=== PATIENT | female | born 1990 | race African-American/Black ===

== ENCOUNTER 2017-03-07 13:03 | Emergency (ER) | payer SELFPAY ==
[~2017-03-07] VITALS: Ht 160 cm; Wt 70.0 kg
[2017-03-07 13:04] VITALS: BP 130/87; PULSE 86; RESP 20; TEMP 98.4; O2SAT 100
[2017-03-07 13:49] VITALS: BP 128/77; PULSE 70; RESP 16; O2SAT 100
--- NOTE | 2017-03-07 13:59 | PD ---
HPI Chief Complaint: Medical Clearance Time Seen by Provider: 13:59 Travel History International Travel<30 days: No Contact w/Intl Traveler<30days: No Traveled to known affect area: No History of Present Illness HPI 26 YO F presents to the ED for evaluation of decreased appetite, nausea x 7 weeks. Per the patient she is 8 weeks with her first . She has no difficulty swallowing fluids or solids. She denies headaches, fever, chills, vomiting, abdominal pain, changes in bowel habits, dysuria, back pain, vaginal discharge or vaginal bleeding. She does not take any daily medications. She has not yet established care with an broaching machine repairer. [facility] Past Medical History Medical History: Denies Significant Hx Influenza Vaccination: No ?: LMP: 01/16/2017 : 1 Past Surgical History Surgical History: No Previous Surgery Social History Alcohol Use: Yes (OCCASIONALLY) Tobacco Use: No Substance Use: No Allergies-Medications (Allergen,Severity, Reaction): Uncoded Allergies: TIN (Allergy, Intermediate, SWELLING, 03/07/17) Reported Meds & Prescriptions Reported Meds & Active Scripts Active Se-Chioma 19 29-1 mg Chew ( Vit W/ Ferrous Fumara Chew) 1 Chew 1 Tab CHEW DAILY Review of Systems Except as stated in HPI: all other systems reviewed are Neg Physical Exam Narrative GENERAL: Well-nourished, well-developed well-appearing black female in no acute distress. SKIN: Focused skin assessment warm/dry. HEAD: Normocephalic. EYES: No scleral icterus. No injection or drainage. NECK: Supple, trachea midline. No JVD or lymphadenopathy. CARDIOVASCULAR: Regular rate and rhythm without murmurs, gallops, or rubs. RESPIRATORY: Breath sounds clear and equal bilaterally. No accessory muscle use. GASTROINTESTINAL: Abdomen soft, non-tender, nondistended. Active bowel sounds. MUSCULOSKELETAL: No cyanosis, or edema. BACK: Nontender without obvious deformity. No CVA tenderness. Data Data Last Documented VS Vital Signs Date Time Temp Pulse Resp B/P Pulse Ox O2 Delivery O2 Flow Rate FiO2 03/07/17 13:49 70 16 128/77 100 Room Air 03/07/17 13:04 98.4 MDM Medical Decision Making Medical Screen Exam Complete: Yes Emergency Medical Condition: Yes Differential Diagnosis versus hyperemesis versus inappropriate use of the emergency room versus other Narrative Course 26-year-old 8 week gravid female presents to the ED for evaluation of 7 week history of decreased appetite and nausea. She has not had any problems keeping food down, just states that she has a low appetite and feels tired. She is not yet established obstetric care. Vitals reviewed. On physical exam the patient is very well-appearing and the abdominal exam is completely benign. This is her first so I counseled her that she should begin taking vitamins, eat small meals throughout the day, establish obstetrical care. I prescribed 30 days' vitamins plus iron. I advised her not to take any medications without confirming that they were safe in . The patient was reassured by this discussion and is stable and discharged to outpatient obstetric care. Diagnosis Primary Impression: First trimester Referrals: Behavioral Health Care Manager Patient Instructions: First Trimester (ED), General Instructions Additional Instructions: Rest, hydrate. Eat small meals throughout the course of the day. Begin vitamins daily. Follow-up with the broaching machine repairer. Return to the ED for any urgent or emergent medical condition. Med/Other Pt SpecificInfo: Prescription(s) given Scripts Vit W/ Ferrous Fumara Chew (Se-Chioma 19 29-1 mg Chew)1 Chew1 Tab CHEW DAILY #30 EA Ref 0 Prov:Breanna Brown MD 03/07/17 Disposition: 01 DISCHARGE HOME Condition: Stable [place] Keith Mar 07, 2017 13:59
[2017-03-07] MEDS ORDERED: SE-NCHW CHEW (14:22)
== END 2017-03-07 15:25 | disposition home or self-care (01) ==
LOC: NEPD 13:03
DX: O26.891 Other specified pregnancy related conditions, first trimester (principal); R11.0 Nausea; Z3A.08 8 weeks gestation of pregnancy
CPT/HCPCS: 99281

== ENCOUNTER 2017-10-12 19:51 | Inpatient (IN) | payer MEDICAID ==
[~2017-10-12] VITALS: Ht 167.6 cm; Wt 77.0 kg
[~2017-10-12 19:51] MED LIST: SE-NCHW CHEW
[2017-10-12 21:21] LABS: BILIRUBIN, URINE NEG (NEG); BLOOD, URINE NEG (NEG); GLUCOSE,URINE NEG (NEG); KETONE, URINE NEG (NEG); NITRITE,URINE NEG (NEG); PH, URINE 6.5 (5.0-8.5); SQUAMOUS EPITHELIAL CELL URINE 1 /hpf (0-5); URINE COLOR LIGHT-YELLOW (YELLW/STRAW); URINE LEUKOCYTE ESTERASE NEG (NEG)
[2017-10-12 22:21] LABS: ALBUMIN 2.8 GM/DL (3.4-5.0); ALT (GPT) 15 U/L (10-53); AST (GOT) 19 U/L (15-37); BICARBONATE 28.4 MEQ/L (21.0-32.0); BLOOD UREA NITROGEN 3 MG/DL (7-18); CALCIUM 8.4 MG/DL (8.5-10.1); CHLORIDE 106 MEQ/L (98-107); CREATININE 0.83 MG/DL (0.50-1.00); GLOMERULAR FILTRATION RATE 98 ML/MIN (>89); GLUCOSE,RANDOM 85 MG/DL (74-106); SODIUM (NA) 144 MEQ/L (136-145)
[2017-10-12 22:24] LABS: ALKALINE PHOSPHATASE 128 U/L (45-117); TOTAL BILIRUBIN ADULT 0.2 MG/DL (0.2-1.0)
[2017-10-12] MEDS ORDERED: NIFEdipine 10 MG CAP ONE (22:31)
[2017-10-12] MEDS ORDERED: LACTATED RINGER'S 1000 ML INJ 1,000 ML IV PRN (22:33)
[2017-10-12 22:38] LABS: HEMATOCRIT 32.9 % (35.0-46.0); HEMOGLOBIN 11.2 GM/DL (11.6-15.3); MEAN CELL VOLUME 87.4 FL (80.0-100.0); MEAN CORPUSCULAR HEMOGLOBIN 29.9 PG (27.0-34.0); MEAN CORPUSCULAR HGB CONC 34.2 % (32.0-36.0); MEAN PLATELET VOLUME 9.6 FL (7.0-11.0); PLATELET COUNT 202 TH/MM3 (150-450); RED BLOOD COUNT 3.76 MIL/MM3 (4.00-5.30); RED CELL DISTRIBUTION WIDTH 13.9 % (11.6-17.2)
[2017-10-12 22:45] VITALS: BP 158/96; PULSE 81
[2017-10-12] MEDS ORDERED: CITRIC ACID-SODIUM CITRATE LIQ 30 ML UDC PO SCH (22:45)
[2017-10-12] MEDS ORDERED: LIDOCAINE HCL 1% 50 ML VIAL INFIL PRN (22:45)
[2017-10-12] MEDS ORDERED: MINERAL OIL 10 ML VIAL TOPICAL PRN (22:45)
[2017-10-12] MEDS ORDERED: LIDOCAINE HCL 1% 50 ML VIAL I-DERMAL PRN (22:45)
[2017-10-12] MEDS ORDERED: SODIUM CHLORID 0.9% 500 ML INJ 500 ML IV PRN (22:45)
[2017-10-12] MEDS ORDERED: OXYTOCIN 30 UNITS-500ML PREMIX 500 ML IV ONE (22:45)
--- NOTE | 2017-10-12 22:45 | HHI.HP ---
History & Physical H&P HPI Chief Complaint menjivar, increased bp Date Seen: Oct 12, 2017 Time Seen: 22:37 Travel History International Travel<30 Days: No Contact w/Intl Traveler<30Days: No Known Affected Area: No History of Present Illness HPI pt. is a 27 y/o @ 39 weeks present w/ c/o menjivar. pt. seen today by naval engineer for pnv and noted to have swelling and menjivar. on present pt. w/ noted htn. urine dip show no protein. pt. w/ bp 160-170/90's. pt. for iol. Weeks Gestation: 39 Para: 0 : 1 History Past Medical History Medical History: Denies Significant Hx Obstetric History Obstetric History Past Surgical History Surgical History: No Previous Surgery Family History Family History: Negative Social History Alcohol Use: No Tobacco Use: No Substance Abuse: No Allergies-Medications (Allergen,Severity, Reaction): Uncoded Allergies: TIN (Allergy, Intermediate, SWELLING, 03/07/17) Home Meds Active Scripts Vit W/ Ferrous Fumara Chew (Se- 19 29-1 mg Chew) 1 Chew, 1 TAB CHEW DAILY for Nutritional Supplement, #30 EA 0 Refills Prov:Breanna Brown MD 03/07/17 Review of Systems Except as stated in HPI: all other systems reviewed are Neg Physical Exam Narrative GENERAL: Well-nourished, well-developed patient. SKIN: Warm and dry. HEAD: menjivar EYES: No scleral icterus. No injection or drainage. ENT: No nasal drainage noted. Mucous membranes pink. Airway patent. NECK: Supple, trachea midline. No JVD. CARDIOVASCULAR: Regular rate and rhythm without murmurs, gallops, or rubs. RESPIRATORY: Breath sounds equal bilaterally. No accessory muscle use. ABDOMEN/GI: Abdomen soft, non-tender, bowel sounds present, no rebound, no guarding Gravid GENITOURINARY: External Genitalia: intact and normal in appearance Dilatation: 2 Effacement: 80 Station: high Presentation: cephalic Membranes: intact Uterine Contractions: irreg FHT's: Category: 1 Reactive: 2 Variability: mod Decels: none EXTREMITIES: No cyanosis or edema. BACK: Nontender without obvious deformity. No CVA tenderness. NEUROLOGICAL: Awake and alert. Motor and sensory grossly within normal limits. Five out of 5 muscle strength in all muscle groups. Normal speech. Data Data Vital Signs Reviewed: Yes Orders Orders Urinalysis - C+S If Indicated (10/12/17 20:49) Cbc No Diff, Includes Plts (10/12/17 ) Comprehensive Metabolic Panel (10/12/17 ) Uric Acid (10/12/17 ) Nifedipine (Procardia) (10/12/17 22:31) Admit To Inpatient (10/12/17 ) Vital Signs (Adult) .Per protocol (10/12/17 22:33) Heart (10/12/17 22:33) Amnioinfusion (10/12/17 22:33) Urinary Catheter Management .ONCE (10/12/17 22:33) Diet Liquid (10/13/17 Breakfast) Lactated Ringer's 1000 Ml Inj (Lr 1000 M (10/12/17 22:33) Lactated Ringer's 1000 Ml Inj (Lr 1000 M (10/12/17 22:33) Sodium Chlorid 0.9% 500 Ml Inj (Ns 500 M (10/12/17 22:45) Sodium Chlor 0.9% 1000 Ml Inj (Ns 1000 M (10/12/17 22:53) Lidocaine 1% Inj (50 Ml) (Xylocaine 1% I (10/12/17 22:45) Citric Acid-Sodium Citrate Liq (Bicitra (10/12/17 22:45) Fentanyl Inj (Fentanyl Inj) (10/12/17 22:45) Fentanyl Inj (Fentanyl Inj) (10/12/17 22:45) Abo/Rh Blood Type (10/12/17 22:33) Drug Screen, Random Urine (10/12/17 22:33) Ob/Psych Drug Screen, Urine (10/12/17 22:33) Resp Oxygen Non Rebreathe Mask (10/12/17 ) ^ Epidural / Intrathecal Infus (10/12/17 22:33) Oxytocin 30 Units-500ml Premix (Pitocin (10/12/17 22:45) Lidocaine 1% Inj (50 Ml) (Xylocaine 1% I (10/12/17 22:45) Light Mineral Oil (Muri-Lube Oil) (10/12/17 22:45) Inpatient Certification (10/12/17 ) Group B Strep: Negative Labs Laboratory Tests Test 10/12/17 20:30 10/12/17 20:59 Urine Color LIGHT-YELLOW Urine Turbidity CLEAR Urine pH 6.5 Urine Specific [place] 1.004 Urine Protein NEG Urine Glucose (UA) NEG Urine Ketones NEG Urine Occult Blood NEG Urine Nitrite NEG Urine Bilirubin NEG Urine Urobilinogen LESS THAN 2.0 Urine Leukocyte Esterase NEG Urine WBC LESS THAN 1 Urine Squamous Epithelial Cells 1 Microscopic Urinalysis Comment CULT NOT INDICATED Blood Urea Nitrogen 3 Creatinine 0.83 Random Glucose 85 Total Protein 7.0 Albumin 2.8 Calcium Level 8.4 Uric Acid 6.7 Alkaline Phosphatase 128 Aspartate Amino Transf (AST/SGOT) 19 Alanine Aminotransferase (ALT/SGPT) 15 Total Bilirubin 0.2 Sodium Level 144 Potassium Level 3.1 Chloride Level 106 Carbon Dioxide Level 28.4 Anion Gap 10 Estimat Glomerular Filtration Rate 98 MDM Medical Record Reviewed: Yes Plan pt. to be admitted for iol 2/2 htn @ term. condition d/w pt. all ? answered. Diagnosis Diagnosis: Primary Impression: Hypertension affecting in third trimester Additional Impression: 39 weeks gestation of Edwin Ferrer Jr., MD Oct 12, 2017 22:43 Edwin Ferrer Jr., MD Oct 12, 2017 22:45
[2017-10-12] MEDS ORDERED: SODIUM CHLOR 0.9% 1000 ML INJ 1,000 ML IV PRN (22:53)
[2017-10-12] MEDS ORDERED: DINOPROSTONE 10 MG VAG INSERT VAGINAL ONE (23:00)
[2017-10-12] MEDS ORDERED: SODIUM CHLORIDE 0.9% FLUSH 10 ML FLUSH IV FLUSH PRN (23:00)
[2017-10-12 23:09] VITALS: BP 161/91; PULSE 84
[2017-10-12 23:15] VITALS: BP 171/88; PULSE 85
[2017-10-12 23:28] VITALS: BP 157/93; PULSE 86
[2017-10-13] VITALS (81 sets, daily range): BP systolic 115–176; BP diastolic 60–105; PULSE 86–144; RESP 14–18; TEMP 98.1–98.3
[2017-10-13] MEDS: LACTATED RINGER'S 1000 ML INJ 1,000 ML IV SCH ×5 (00:12→19:52)
[2017-10-13] MEDS ORDERED: NIFEdipine 10 MG CAP ONE (03:15)
[2017-10-13] MEDS ORDERED: NIFEdipine 20 MG CAP PO ONE (03:30)
[2017-10-13] MEDS ORDERED: MISOPROSTOL 25 MCG TAB PO ONE (06:45)
[2017-10-13] MEDS ORDERED: SODIUM CHLORIDE 0.9% FLUSH 10 ML FLUSH IV FLUSH SCH ×2 (09:00→21:00)
--- NOTE | 2017-10-13 09:08 | PD.LABORPN ---
Subjective Subjective Patient laying in bed resting comfortably. Previously had headache, states it is improving. Objective Objective Pelvic Exam: Previously examined, to be reexamined with further ripening Cervix: Posterior Dilatation: 3 Effacement: 80 Station: -2 Presentation: Vertex Membranes: Intact Uterine Contractions: Occasional FHT's: Category: 1 Baseline: 140 Reactive: Yes Variability: Moderate Decels: None Weeks Gestation: 39 Assessment/Plan Assessment and Plan 27-year-old she 1 P0 at 39/1 admitted for induction secondary to hypertension. GBS negative -FHT category 1, reassuring -Continue to monitor FHT -Continue cervical ripening and induction of labor -Expectant management DW Dr. Carissa Hwang,Daren Yu MD R1 Oct 13, 2017 09:08
[2017-10-13] MEDS ORDERED: CALCIUM GLUCONATE 10% 1 GM/10 ML VIAL IV PUSH PRN (11:00)
[2017-10-13] MEDS ORDERED: SODIUM CHLORIDE 0.9% FLUSH 10 ML FLUSH IV FLUSH PRN (11:00)
[2017-10-13] MEDS ORDERED: OXYTOCIN 30 UNITS-500ML PREMIX 500 ML IV PRN (11:00)
[2017-10-13] MEDS ORDERED: MAGNESIUM SULFATE 4 GM PREMIX 100 ML IV ONE (11:30)
[2017-10-13] MEDS: MAGNESIUM SULFATE 40 GM PREMIX 1,000 ML IV SCH (11:35)
[2017-10-13 14:43] LABS: HEPATITIS A AB IGM NEGATIVE (NEGATIVE); HEPATITIS B CORE AB IGM NEGATIVE (NEGATIVE)
[2017-10-13] MEDS ORDERED: NIFEdipine 10 MG CAP PO PRN ×3 (15:45→21:15)
[2017-10-13] MEDS ORDERED: fentaNYL 2MCG-BUPIV 0.125% INJ 100 ML ONE (16:44)
[2017-10-13] MEDS ORDERED: DO NOT ADMINISTER ANTICOAGULANTS PRN (19:15)
[2017-10-13] MEDS ORDERED: ePHEDrine/NS 25 MG/5 ML SYRINGE IV PUSH PRN (19:15)
[2017-10-13] MEDS ORDERED: NO SYSTEM NARCOTICS PRN (19:15)
--- NOTE | 2017-10-13 19:31 | PD.LABORPN ---
Subjective Subjective The patient is comfortable with epidural. Objective Vital Signs Vital Signs Date Time Temp Pulse Resp B/P (MAP) Pulse Ox O2 Delivery O2 Flow Rate FiO2 10/13/17 18:57 16 10/13/17 18:45 108 155/89 (111) 10/13/17 18:31 110 155/75 (101) 10/13/17 18:29 16 10/13/17 18:15 109 140/85 (103) 10/13/17 18:00 112 142/79 (100) 10/13/17 17:46 108 144/71 (95) 10/13/17 17:39 16 10/13/17 17:30 118 154/82 (106) 10/13/17 17:15 117 123/63 (83) 10/13/17 17:10 117 10/13/17 17:10 120 115/61 (79) 10/13/17 17:05 135 123/71 (88) 10/13/17 17:05 126 10/13/17 17:03 144 142/66 (91) 10/13/17 17:00 16 10/13/17 17:00 126 137/82 (100) 10/13/17 17:00 124 10/13/17 16:55 118 10/13/17 16:45 122 128/66 (86) 10/13/17 16:30 125 146/76 (99) 10/13/17 16:30 16 10/13/17 16:19 109 155/94 (114) 10/13/17 16:15 102 164/97 (119) 10/13/17 16:00 102 166/93 (117) 10/13/17 15:53 98.2 16 10/13/17 15:45 98 166/92 (116) 10/13/17 15:31 100 169/102 (124) 10/13/17 15:30 98 10/13/17 15:15 100 149/84 (105) 10/13/17 15:00 16 10/13/17 15:00 99 147/81 (103) 10/13/17 14:45 101 158/103 (121) 10/13/17 14:30 93 144/89 (107) 10/13/17 14:15 100 147/92 (110) 10/13/17 14:00 106 151/91 (111) 10/13/17 13:55 16 10/13/17 13:45 97 159/99 (119) 10/13/17 13:30 98 152/102 (119) 10/13/17 13:15 91 156/102 (120) 10/13/17 13:00 92 148/93 (111) 10/13/17 13:00 14 10/13/17 12:57 18 10/13/17 12:45 92 149/94 (112) 10/13/17 12:30 97 158/96 (116) 10/13/17 12:15 94 141/89 (106) 10/13/17 12:00 18 10/13/17 11:55 99 150/90 (110) 10/13/17 11:50 97 146/91 (109) 10/13/17 11:45 93 151/86 (107) 10/13/17 11:41 98 143/92 (109) 10/13/17 11:39 98 138/92 (107) 10/13/17 11:35 86 146/89 (108) 10/13/17 11:31 89 153/99 (117) Objective Pelvic Exam: Cervix: [-] Dilatation: [-3-4] Effacement: [-100 and] Station: [--2] Presentation: [-Vertex] Membranes: [Artificially ruptured] Uterine Contractions: [Every 3-] FHT's: Category: [-1] Baseline: [-] Reactive: [-] Variability: [-] Decels: [-] Weeks Gestation: 39 Medical induction of labor?: Yes Artificial rupture of membrane: Yes Artificial ROM date: Oct 13, 2017 Artifical ROM time: 19:29 Assessment/Plan Assessment and Plan Assessment: 27-year-old primigravida at 39+ weeks gestation admitted for induction of labor secondary to preeclampsia and she is currently undergoing Pitocin augmentation. Magnesium sulfate seizure prophylaxis and when necessary Procardia for severe range hypertension. Plan: An IUPC was placed. Continue epidural. Continue magnesium sulfate. Continue Pitocin Bj Pope MD Oct 13, 2017 19:31
[2017-10-13] MEDS: fentaNYL 2MCG-BUPIV 0.125% 100 ML EPIDURAL SCH ×2 (19:52→23:42)
[2017-10-14] VITALS (129 sets, daily range): BP systolic 129–172; BP diastolic 68–100; PULSE 85–121; RESP 16–18; TEMP 96.9–99.2; O2SAT 99–100
--- NOTE | 2017-10-14 00:16 | PD.LABORPN ---
Subjective Subjective Patient evaluated earlier this evening by OB team due to elevated BP. Patient currently without complaints. She endorses good movement. Denies any headaches, vision changes, RUQ pain, or swelling. Epidural in place with pitocin and magnesium infusions running. (Yusef Choi MD R2) Objective Vital Signs Vital Signs Date Time Temp Pulse Resp B/P (MAP) Pulse Ox O2 Delivery O2 Flow Rate FiO2 10/14/17 00:01 103 148/94 (112) 10/13/17 23:35 17 10/13/17 23:31 142/82 (102) 10/13/17 23:00 108 151/90 (110) 10/13/17 22:30 113 134/71 (92) 10/13/17 22:04 98.2 18 10/13/17 22:00 117 124/60 (81) 10/13/17 21:30 117 122/65 (84) 10/13/17 21:00 105 136/91 (106) 10/13/17 20:30 108 163/103 (123) 10/13/17 20:00 105 161/101 (121) 10/13/17 19:49 98.2 17 10/13/17 19:45 107 145/91 (109) 10/13/17 19:31 113 157/105 (122) 10/13/17 19:28 16 10/13/17 19:15 128 156/99 (118) 10/13/17 19:00 106 150/82 (104) 10/13/17 18:57 16 10/13/17 18:45 108 155/89 (111) 10/13/17 18:31 110 155/75 (101) 10/13/17 18:29 16 10/13/17 18:15 109 140/85 (103) 10/13/17 18:00 112 142/79 (100) 10/13/17 17:46 108 144/71 (95) 10/13/17 17:39 16 10/13/17 17:30 118 154/82 (106) 10/13/17 17:15 117 123/63 (83) 10/13/17 17:10 117 10/13/17 17:10 120 115/61 (79) 10/13/17 17:05 135 123/71 (88) 10/13/17 17:05 126 10/13/17 17:03 144 142/66 (91) 10/13/17 17:00 16 10/13/17 17:00 126 137/82 (100) 10/13/17 17:00 124 10/13/17 16:55 118 10/13/17 16:45 122 128/66 (86) 10/13/17 16:30 125 146/76 (99) 10/13/17 16:30 16 10/13/17 16:19 109 155/94 (114) 10/13/17 16:15 102 164/97 (119) Objective Pelvic Exam: Per Dr. Pope Cervix: [-] Dilatation: [-3-4] Effacement: [-100 and] Station: [--2] Presentation: [-Vertex] Membranes: [Artificially ruptured] Uterine Contractions: [Every 3-] FHT's: Category: [-1] Baseline: 120s Reactive: Positive Variability: Minimal Decels: None Weeks Gestation: 39 Medical induction of labor?: Yes Artificial rupture of membrane: Yes Artificial ROM date: Oct 13, 2017 Artifical ROM time: 19:29 (Yusef Choi MD R2) Assessment/Plan Assessment and Plan 1. IUP -Continue with routine antepartum care -Epidural in place without complications -Continue magnesium for neuroprotection -Continue Pitocin as tolerated for labor augmentation -FHT category 1, reassuring -Procardia 20mg PO ordered for increasing BP, re-evaluate in 20 min, plan to follow HTN protocol DW: Dr. Pope and Staff (Yusef Choi MD R2) Assessment and Plan Patient seen and evaluated with resident under direct supervision, agree with assessment and plan. (Bj Pope MD) Yusef Choi MD R2 Oct 14, 2017 00:16 Bj Pope MD Oct 14, 2017 06:12
--- NOTE | 2017-10-14 04:23 | PD.LABORPN ---
Subjective Subjective Patient evaluated by OB team due to elevated BP. Patient currently sleeping, but awakens to stimulation. She endorses good movement. Denies any headaches, vision changes, RUQ pain, or swelling. Epidural in place with pitocin and magnesium infusions running. BP improved with Procardia from earlier , however is beginning to increase again. (Yusef Choi MD R2) Objective Vital Signs Vital Signs Date Time Temp Pulse Resp B/P (MAP) Pulse Ox O2 Delivery O2 Flow Rate FiO2 10/14/17 04:10 105 10/14/17 04:05 103 10/14/17 04:05 100 10/14/17 04:00 103 152/96 (114) 10/14/17 04:00 102 10/14/17 04:00 100 10/14/17 03:55 100 10/14/17 03:55 103 10/14/17 03:50 105 10/14/17 03:50 99 10/14/17 03:45 104 10/14/17 03:45 100 10/14/17 03:40 104 10/14/17 03:40 100 10/14/17 03:35 104 100 10/14/17 03:30 100 10/14/17 03:30 104 154/98 (116) 10/14/17 03:30 103 10/14/17 03:25 102 10/14/17 03:25 100 10/14/17 03:20 103 10/14/17 03:20 100 10/14/17 03:15 100 10/14/17 03:15 104 10/14/17 03:10 103 10/14/17 03:10 100 10/14/17 03:05 103 10/14/17 03:05 100 10/14/17 03:00 105 150/98 (115) 10/14/17 02:44 98.6 18 10/14/17 02:30 102 145/82 (103) 10/14/17 02:07 17 10/14/17 02:00 101 137/83 (101) 10/14/17 01:30 102 142/76 (98) 10/14/17 01:01 103 129/78 (95) 10/14/17 00:42 99.2 17 10/14/17 00:30 106 156/94 (114) 10/14/17 00:01 103 148/94 (112) 10/13/17 23:35 17 10/13/17 23:31 142/82 (102) 10/13/17 23:00 108 151/90 (110) 10/13/17 22:30 113 134/71 (92) 10/13/17 22:04 98.2 18 10/13/17 22:00 117 124/60 (81) 10/13/17 21:30 117 122/65 (84) 10/13/17 21:00 105 136/91 (106) 10/13/17 20:30 108 163/103 (123) Objective Pelvic Exam: Per Dr. Pope Cervix: [-] Dilatation: [-3-4] Effacement: [-100 and] Station: [--2] Presentation: [-Vertex] Membranes: [Artificially ruptured] Uterine Contractions: [Every 2] FHT's: Category: 2 Baseline: 120s Reactive: Negative Variability: Minimal Decels: None Weeks Gestation: 39 Medical induction of labor?: Yes Artificial rupture of membrane: Yes Artificial ROM date: Oct 13, 2017 Artifical ROM time: 19:29 (Yusef Choi MD R2) Assessment/Plan Assessment and Plan 1. IUP -Continue with routine antepartum care -Epidural in place without complications -Continue magnesium for neuroprotection -Continue Pitocin as tolerated for labor augmentation -FHT category 2, continue to monitor, patient repositioned -Procardia 20mg PO per HTN protocol DW: Dr. Pope and Staff (Yusef Choi MD R2) Assessment and Plan Patient seen and evaluated with resident under direct supervision, agree with assessment and plan. (Bj Pope MD) Yusef Choi MD R2 Oct 14, 2017 04:23 Bj Pope MD Oct 14, 2017 06:15
[2017-10-14] MEDS: LACTATED RINGER'S 1000 ML INJ 1,000 ML IV SCH ×3 (05:36→13:56)
--- NOTE | 2017-10-14 05:40 | PD.LABORPN ---
Subjective Subjective Patient evaluated by OB team for progression. She endorses good movement. Denies any headaches, vision changes, RUQ pain, or swelling. Epidural in place with pitocin and magnesium infusions running. (Yusef Choi MD R2) Objective Vital Signs Vital Signs Date Time Temp Pulse Resp B/P (MAP) Pulse Ox O2 Delivery O2 Flow Rate FiO2 10/14/17 05:25 107 10/14/17 05:20 106 10/14/17 05:15 105 10/14/17 05:10 107 10/14/17 04:55 106 100 10/14/17 04:50 110 10/14/17 04:50 100 10/14/17 04:45 112 10/14/17 04:45 100 10/14/17 04:40 100 10/14/17 04:40 106 10/14/17 04:35 100 10/14/17 04:35 107 10/14/17 04:30 100 10/14/17 04:30 106 10/14/17 04:30 104 154/94 (114) 10/14/17 04:25 104 10/14/17 04:25 100 10/14/17 04:20 103 10/14/17 04:20 99 10/14/17 04:15 103 99 10/14/17 04:10 99 10/14/17 04:10 105 10/14/17 04:05 103 10/14/17 04:05 100 10/14/17 04:00 103 152/96 (114) 10/14/17 04:00 102 10/14/17 04:00 100 10/14/17 03:55 100 10/14/17 03:55 103 10/14/17 03:50 105 10/14/17 03:50 99 10/14/17 03:45 104 10/14/17 03:45 100 10/14/17 03:40 104 10/14/17 03:40 100 10/14/17 03:35 104 100 10/14/17 03:30 100 10/14/17 03:30 104 154/98 (116) 10/14/17 03:30 103 10/14/17 03:25 102 10/14/17 03:25 100 10/14/17 03:20 103 10/14/17 03:20 100 10/14/17 03:15 100 10/14/17 03:15 104 10/14/17 03:10 103 10/14/17 03:10 100 10/14/17 03:05 103 10/14/17 03:05 100 10/14/17 03:00 105 150/98 (115) 10/14/17 02:44 98.6 18 10/14/17 02:30 102 145/82 (103) 10/14/17 02:07 17 10/14/17 02:00 101 137/83 (101) 10/14/17 01:30 102 142/76 (98) 10/14/17 01:01 103 129/78 (95) 10/14/17 00:42 99.2 17 10/14/17 00:30 106 156/94 (114) 10/14/17 00:01 103 148/94 (112) 10/13/17 23:35 17 10/13/17 23:31 142/82 (102) 10/13/17 23:00 108 151/90 (110) 10/13/17 22:30 113 134/71 (92) 10/13/17 22:04 98.2 18 10/13/17 22:00 117 124/60 (81) Objective Pelvic Exam: Cervix: Mid Dilatation: 8cm Effacement: 100 Station: -2 Presentation: Vertex Membranes: AROM Uterine Contractions: Q2 FHT's: Category: 2 Baseline: 130s Reactive: Positive to scalp stimulation Variability: Minimal Decels: None Weeks Gestation: 39 Medical induction of labor?: Yes Artificial rupture of membrane: Yes Artificial ROM date: Oct 13, 2017 Artifical ROM time: 19:29 (Yusef Choi MD R2) Assessment/Plan Assessment and Plan 1. IUP -Continue with routine antepartum care -Epidural in place without complications -Continue magnesium for neuroprotection -Continue Pitocin as tolerated for labor augmentation -FHT category 2, continue to monitor, patient repositioned, baby responsive to scalp stimulation, reassuring -Procardia 20mg PO per HTN protocol DW: Dr. Pope and Staff (Yusef Choi MD R2) Assessment and Plan Patient seen and evaluated with resident under direct supervision, agree with assessment and plan. (Bj Pope MD) Yusef Choi MD R2 Oct 14, 2017 05:40 Bj Pope MD Oct 14, 2017 06:16
[2017-10-14] MEDS: MAGNESIUM SULFATE 40 GM PREMIX 1,000 ML IV SCH (07:12)
[2017-10-14] MEDS: fentaNYL 2MCG-BUPIV 0.125% 100 ML EPIDURAL SCH (07:26)
[2017-10-14] MEDS ORDERED: NIFEdipine 10 MG CAP PO PRN ×2 (08:00→08:30)
[2017-10-14] MEDS ORDERED: LIDOCAINE 2%/EPINEPHrine PF 1:200,000 20ML SDV ONE (11:47)
[2017-10-14] MEDS ORDERED: OXYTOCIN 10 UNIT/ML AMP IV ONE (12:00)
[2017-10-14] MEDS ORDERED: LACTATED RINGER'S 1000 ML INJ 1,000 ML IV ONE (12:00)
[2017-10-14] MEDS ORDERED: ONDANSETRON HCL 4 MG/2 ML VIAL IV ONE (12:00)
[2017-10-14] MEDS ORDERED: DEXAMETHASONE SOD PHOS 4 MG/ML VIAL IV ONE (12:00)
[2017-10-14] MEDS ORDERED: PHENYLEPH/NS 1000 MCG/10 ML SYR IV ONE (12:00)
[2017-10-14] MEDS ORDERED: ceFAZolin INJ 1,000 MG VIAL IV ONE (12:00)
--- NOTE | 2017-10-14 12:40 | PD.LABORPN ---
Subjective Subjective pt. in bed. feeling "loopy" 2/2 mgso4. no cp/sob, no n/v, pt. very edematous and fluid decresed to 100 cc/hr total w/ improvement. urine output 30cc/hour over last hour. pt. w/ epidural and pitocin at 20miu/min. Objective Vital Signs Vital Signs Date Time Temp Pulse Resp B/P (MAP) Pulse Ox O2 Delivery O2 Flow Rate FiO2 10/14/17 12:00 99 146/89 (108) 100 10/14/17 12:00 100 10/14/17 11:35 99 100 10/14/17 11:31 101 142/90 (107) 10/14/17 11:30 101 100 10/14/17 11:10 100 100 10/14/17 11:05 99 100 10/14/17 11:00 103 10/14/17 11:00 103 155/97 (116) 100 10/14/17 11:00 97.6 16 10/14/17 10:40 96 100 10/14/17 10:35 96 100 10/14/17 10:30 97 10/14/17 10:30 96 143/74 (97) 100 10/14/17 10:10 100 100 10/14/17 10:05 104 100 10/14/17 10:00 102 147/88 (107) 100 10/14/17 10:00 100 10/14/17 09:58 16 10/14/17 09:30 101 155/80 (105) 100 10/14/17 09:30 100 10/14/17 09:05 103 100 10/14/17 09:00 103 148/78 (101) 10/14/17 09:00 100 10/14/17 09:00 107 10/14/17 09:00 16 10/14/17 08:40 105 100 10/14/17 08:35 105 100 10/14/17 08:31 107 136/68 (90) 10/14/17 08:30 109 100 10/14/17 08:15 16 10/14/17 08:01 155/95 (115) 10/14/17 07:58 98.1 10/14/17 07:56 16 10/14/17 07:40 100 100 10/14/17 07:35 100 100 10/14/17 07:30 99 172/95 (120) 100 10/14/17 07:30 102 10/14/17 07:30 16 10/14/17 07:10 96 100 10/14/17 07:05 100 100 10/14/17 07:04 18 10/14/17 07:00 100 10/14/17 07:00 106 10/14/17 07:00 102 156/86 (109) 10/14/17 06:55 102 10/14/17 06:55 100 10/14/17 06:50 101 10/14/17 06:50 100 10/14/17 06:45 100 10/14/17 06:45 101 10/14/17 06:40 106 100 10/14/17 06:35 100 10/14/17 06:35 101 10/14/17 06:30 103 10/14/17 06:30 100 10/14/17 06:30 100 146/88 (107) 10/14/17 06:25 100 10/14/17 06:25 100 10/14/17 06:20 100 10/14/17 06:20 101 10/14/17 06:15 100 10/14/17 06:15 103 10/14/17 06:10 100 10/14/17 06:10 101 10/14/17 06:05 105 10/14/17 06:05 100 10/14/17 06:00 108 10/14/17 06:00 109 148/91 (110) 10/14/17 06:00 100 10/14/17 05:55 100 10/14/17 05:55 108 10/14/17 05:50 107 10/14/17 05:50 100 10/14/17 05:45 100 10/14/17 05:45 119 10/14/17 05:43 98.2 18 10/14/17 05:40 121 10/14/17 05:40 99 10/14/17 05:35 105 100 10/14/17 05:30 108 10/14/17 05:30 103 155/95 (115) 100 10/14/17 05:25 107 10/14/17 05:25 100 10/14/17 05:20 100 10/14/17 05:20 106 10/14/17 05:15 100 10/14/17 05:15 105 10/14/17 05:10 100 10/14/17 05:10 107 10/14/17 05:05 105 100 10/14/17 05:00 108 162/98 (119) 100 10/14/17 05:00 104 10/14/17 04:55 106 100 10/14/17 04:50 110 10/14/17 04:50 100 10/14/17 04:45 112 10/14/17 04:45 100 10/14/17 04:40 100 10/14/17 04:40 106 10/14/17 04:35 100 10/14/17 04:35 107 Objective Pelvic Exam: Cervix: mid Dilatation: 9 Effacement: 100 Station: 0 Presentation: cephalic Membranes: ruptured Uterine Contractions: q2-3mins FHT's: Category: 1 Reactive: + Variability: mod Decels: none Weeks Gestation: 39 Pt started active labor?: Yes Medical induction of labor?: Yes Artificial rupture of membrane: Yes Artificial ROM date: Oct 13, 2017 Artifical ROM time: 19:29 Assessment/Plan Problem List: (1) 39 weeks gestation of ICD Codes: Z3A.39 - 39 weeks gestation of Status: Acute (2) Hypertension affecting in third trimester ICD Codes: O16.3 - Unspecified maternal hypertension, third trimester Status: Acute Assessment and Plan pt. w/ failed iol 2/2 gestational htn. pt. w/ arrest of dilation. condition d/w pt. delivery d/w pt. risks/benefits and alternatives d/ w pt. all ? answered. pt. give verbal consent for procedure. to. or. Edwin Ferrer Jr., MD Oct 14, 2017 12:40
[2017-10-14] MEDS ORDERED: MORPHINE SULFATE PF 5 MG/10 ML VIAL ONE (14:17)
[2017-10-14] MEDS ORDERED: ACETAMINOPHEN 1000 MG/100 ML 100 ML IV ONE ×2 (14:17→18:00)
[2017-10-14] MEDS ORDERED: ACETAMINOPHEN 1000 MG/100 ML 100 ML IV SCH (15:00)
[2017-10-14] MEDS ORDERED: CARBOPROST TROMETHAMINE 250 MCG/ML VIAL ONE (15:06)
--- NOTE | 2017-10-14 16:33 | PD.OB.DELI ---
Procedure Note Section Procedure Pre Op Diagnosis: (1) 39 weeks gestation of (2) Hypertension affecting in third trimester (3) Failed induction of labor Post Op Diagnosis: (1) 39 weeks gestation of (2) Hypertension affecting in third trimester (3) Failed induction of labor Performed by Edwin Ferrer Procedure: Primary Low Transverse Sec Indication for delivery: Other Previous condition: None Informed consent obtained: For procedure Confirmed correct: Patient, Time-out taken Anesthesia: Epidural Medication prior to procedure: As documented in eMAR Monitoring during procedure: Blood pressure monitoring, quality assurance monitor body Urinary catheter: Other Sterile preparation: In usual fashion Position: Supine with wedge to left side Operative Features Skin Incision: Transverse Uterine Incision: Low transverse w/knife / blunt ext Membranes Ruptured: Artificially Presentation: Occiput anterior Delivery date: Oct 14, 2017 Delivery time: 14:54 Delivery of : Uneventful : Male One Minute : 8 Five Minute : 8 Weight: 6'6" Status of infant: Viable Placenta delivered: Intact Medications: Antibiotics Estimated blood loss: 700 Procedure tolerated: Well Maternal Condition: Guarded Condition: Stable Procedure in detail pt. to or w/ ivf running. pt. identified and epidural adequate. pfan incision and carried to underlying layer of fascia. fascia incised and extended sharply. superior aspect of fascia grasped w/ kermit clamps and underlying muscles dissected sharply and bluntly. the rectus muscles incised in midline and peritoneum entered bluntly. incision extended w/ good visualization of the bladder. low uterine segment incised in xverse fashion and extended bluntly. the infants head was well engaged and molded and freed. the the delivered w/o diff or trauma. cord doubly clamped and cut. handed to waiting rescucitation team. cord blood obtained. placenta delivered w/o diff. the uterus was exteriorized and cleared of all clots and debris. an extension of incision with a hole in the round lig on left side at level of cardinal lig. This extension was reapired in a running fashion with #1 vicryl. a 2nd layer was embricated. the uterine incision was closed in a running fashion and the embricated. bleeding was noted on the serosa of the bladder and this was made hemostatic with a figure of 8. the uterus was returned to the abdomen and copious irrigation of the pelvis was performed and all clots and debris was cleared. the uterine incision was noted to be hemostatic and gene was placed under the bladder flap. the peritoneum was reapprox in interrupted fashion. subfascial tissues noted to be hemostatic. rectus fashia closed in a running fashion. subq closed with miltiple interrupted suture and skin closed in subq fashion. sponge lap and needle counts correct x 2. pt. received ancef prior to the procedure. Edwin Ferrer Jr., MD Oct 14, 2017 16:33
[2017-10-14] MEDS ORDERED: OXYTOCIN 30 UNITS-500ML PREMIX 500 ML ONE (17:04)
[2017-10-14] MEDS ORDERED: EPIDURAL-NO SYSTEMIC NARCOTICS PRN (18:00)
[2017-10-14] MEDS ORDERED: OXYTOCIN 30 UNITS-500ML PREMIX 500 ML IV ONE (18:00)
[2017-10-14] MEDS ORDERED: ONDANSETRON HCL 4 MG/2 ML VIAL IV PUSH PRN (18:00)
[2017-10-14] MEDS ORDERED: EPIDURAL-DIPHENHYDRAMINE HCL 50 MG/ML VIAL IV PUSH PRN (18:00)
[2017-10-14] MEDS ORDERED: SODIUM CHLORIDE 0.9% FLUSH 10 ML FLUSH IV FLUSH PRN (18:00)
[2017-10-14] MEDS ORDERED: EPIDURAL-DO NOT ADMINISTER ANTICOAGULANTS PRN (18:00)
[2017-10-14] MEDS ORDERED: EPIDURAL-NALOXONE HCL 0.4 MG/ML AMP IV PUSH PRN (18:00)
[2017-10-14] MEDS ORDERED: KETOROLAC TROMETHAMINE 60 MG/2 ML (IM) VIAL IM PRN (18:00)
[2017-10-14] MEDS ORDERED: MORPHINE SULFATE 4 MG/ML INJ IV PUSH PRN (18:00)
[2017-10-14] MEDS ORDERED: EPIDURAL-DIPHENHYDRAMINE HCL 50 MG CAP PO PRN (18:00)
[2017-10-14] MEDS ORDERED: NIFEdipine 20 MG CAP PO ONE (18:30)
[2017-10-14] MEDS: SODIUM CHLORIDE 0.9% FLUSH 10 ML FLUSH IV FLUSH SCH (21:00)
[2017-10-14] MEDS ORDERED: LACTATED RINGER'S 1000 ML INJ 1,000 ML IV SCH (22:47)
[2017-10-15] VITALS (25 sets, daily range): BP systolic 135–157; BP diastolic 79–97; PULSE 99–115; RESP 16–18; TEMP 98.2–99.6; O2SAT 100
[2017-10-15] MEDS ORDERED: OXYTOCIN 30 UNITS-500ML PREMIX 500 ML IV PRN (04:00)
[2017-10-15] MEDS ORDERED: MAGNESIUM SULFATE 40 GM PREMIX 1,000 ML ONE (06:36)
[2017-10-15] MEDS: ACETAMINOPHEN 1000 MG/100 ML 100 ML IV SCH ×2 (09:00→17:39)
[2017-10-15] MEDS: SODIUM CHLORIDE 0.9% FLUSH 10 ML FLUSH IV FLUSH SCH ×2 (09:00→21:00)
--- NOTE | 2017-10-15 09:06 | HHI.OB ---
Subjective Remarks 27 year old s/p C/S at 39 wks gestation, POD 1. AFVSS. Patient reports she is feeling well. Bleeding is decreasing and pain is well-controlled. She is breast feeding and bonding well with baby. Not ambulating due to continued MgSO4. She is tolerating a diet without nausea or vomiting. She has not had a bowel movement. She has passed gas. Denies chest pain, dysuria, shortness of breath, or calf pain. Objective Vitals/I&O Vital Signs Date Time Temp Pulse Resp B/P (MAP) Pulse Ox O2 Delivery O2 Flow Rate FiO2 10/15/17 08:54 98.5 18 10/15/17 08:00 108 157/91 (113) 10/15/17 07:40 16 10/15/17 07:00 99 151/89 (109) 10/15/17 06:46 18 10/15/17 06:00 101 18 135/84 (101) 10/15/17 05:00 102 142/81 (101) 10/15/17 05:00 18 10/15/17 04:00 103 137/82 (100) 10/15/17 04:00 16 10/15/17 03:50 109 100 10/15/17 03:13 18 10/15/17 01:00 101 148/92 (110) 10/15/17 01:00 18 10/15/17 00:09 104 100 10/15/17 00:04 102 100 10/15/17 00:00 102 151/94 (113) 10/15/17 00:00 18 10/14/17 23:59 102 100 10/14/17 23:54 98 100 10/14/17 23:49 99 100 10/14/17 23:44 98 100 10/14/17 23:39 98 100 10/14/17 23:34 98 100 10/14/17 23:29 100 100 10/14/17 23:24 101 100 10/14/17 23:19 102 100 10/14/17 23:14 101 100 10/14/17 23:09 102 100 10/14/17 23:04 102 100 10/14/17 23:00 98 152/91 (111) 10/14/17 22:59 99 100 10/14/17 22:58 18 10/14/17 22:54 99 100 10/14/17 22:00 104 138/79 (98) 10/14/17 21:55 18 10/14/17 21:00 89 135/89 (104) 10/14/17 21:00 18 10/14/17 20:00 94 150/99 (116) 10/14/17 19:19 97.2 16 10/14/17 19:01 85 138/84 (102) 10/14/17 18:40 16 10/14/17 18:27 94 156/78 (104) 10/14/17 17:30 98 10/14/17 17:30 158/100 (119) 10/14/17 17:14 100 16 167/99 (121) 10/14/17 17:14 100 10/14/17 17:00 168/95 (119) 10/14/17 17:00 102 16 100 10/14/17 16:53 97.4 10/14/17 16:45 109 16 163/92 (115) 100 10/14/17 16:25 156/80 (105) 10/14/17 16:25 99 16 10/14/17 16:25 96.9 100 10/14/17 14:05 99 100 10/14/17 14:00 97 157/94 (115) 100 10/14/17 14:00 99 10/14/17 13:58 16 10/14/17 13:30 95 10/14/17 13:30 95 148/94 (112) 100 10/14/17 13:30 16 10/14/17 13:05 94 100 10/14/17 13:00 94 163/93 (116) 100 10/14/17 13:00 16 10/14/17 13:00 94 10/14/17 12:35 98 100 10/14/17 12:31 96 144/85 (104) 10/14/17 12:30 97 16 100 10/14/17 12:00 99 146/89 (108) 100 10/14/17 12:00 16 10/14/17 12:00 100 10/14/17 11:35 99 100 10/14/17 11:31 101 142/90 (107) 10/14/17 11:30 101 100 10/14/17 11:10 100 100 10/14/17 11:05 99 100 10/14/17 11:00 103 10/14/17 11:00 103 155/97 (116) 100 10/14/17 11:00 97.6 16 10/14/17 10:40 96 100 10/14/17 10:35 96 100 10/14/17 10:30 97 10/14/17 10:30 96 143/74 (97) 100 10/14/17 10:10 100 100 10/14/17 10:05 104 100 10/14/17 10:00 102 147/88 (107) 100 10/14/17 10:00 100 10/14/17 09:58 16 10/14/17 09:30 101 155/80 (105) 100 10/14/17 09:30 100 10/14/17 09:05 103 100 Result Diagram: 10/12/17205810/12/172058 Objective Remarks GENERAL: Well-nourished, well-developed patient. CARDIOVASCULAR: Regular rate and rhythm without murmurs, gallops, or rubs. RESPIRATORY: Breath sounds equal bilaterally. No accessory muscle use. ABDOMEN/GI: Abdomen soft, non-tender, bowel sounds present. Incision: Clean, dry and intact. Fundus: Firm, moderately tender at umbilicus. GENITOURINARY: Light to moderate bleeding. EXTREMITIES: No cyanosis or edema, non-tender, without signs of DVT. Medications and IVs Current Medications Medications (Trade) Dose Ordered Sig/Bravo Route Start Time Stop Time Status Last Admin (Bicitra Liq) 30 ml SAS ADMINISTRATOR PO 10/12/17 22:45 10/16/17 22:44 10/14/17 13:56 (Calcium Gluconate Inj) 1 gm UNSCH PRN IV PUSH 10/13/17 11:00 Lactated Ringer's 1,000 ml @ 100 mls/hr Q10H IV 10/14/17 22:47 10/15/17 18:46 10/14/17 22:47 Oxytocin 500 ml @ 100 mls/hr UNSCH X1 PRN IV 10/15/17 04:00 10/16/17 03:59 (NS Flush) 2 ml BID IV FLUSH 10/14/17 21:00 (NS Flush) 2 ml UNSCH PRN IV FLUSH 10/14/17 18:00 (Mylicon Chew) 80 mg QID PRN PO 10/14/17 18:00 (Motrin) 600 mg Q6H PRN PO 10/14/17 18:00 (Toradol Inj) 30 mg Q6H PRN IM 10/14/17 18:00 10/15/17 17:59 (Percocet 5-325 Mg) 1 tab Q4H PRN PO 10/14/17 18:00 (Percocet 5-325 Mg) 2 tab Q4H PRN PO 10/14/17 18:00 (M-M-R Ii Inj) 0.5 ml ONCE ONCE SQ 10/15/17 16:00 10/15/17 16:01 (Boostrix Inj) 0.5 ml ONCE ONCE IM 10/15/17 16:00 10/15/17 16:01 (Zofran Inj) 4 mg Q6H PRN IV PUSH 10/14/17 18:00 (Morphine Inj) 4 mg Q3H PRN IV PUSH 10/14/17 18:00 Miscellaneous Information NO SYSTEMIC NARCOTICS TO BE GIVEN FO... UNSCH PRN .XX 10/14/17 18:00 10/15/17 17:59 (Narcan Inj) 0.4 mg UNSCH PRN IV PUSH 10/14/17 18:00 10/15/17 17:59 (Benadryl Inj) 25 mg Q6H PRN IV PUSH 10/14/17 18:00 10/15/17 17:59 (Benadryl) 50 mg Q6H PRN PO 10/14/17 18:00 10/15/17 17:59 Miscellaneous Information ALL NURSING DEPARTMENTS UNSCH PRN .XX 10/14/17 18:00 10/15/17 17:59 Acetaminophen 100 ml @ 400 mls/hr Q8H IV 10/15/17 09:00 10/15/17 17:14 Assessment/Plan Problem List: (1) 39 weeks gestation of ICD Codes: Z3A.39 - 39 weeks gestation of Status: Resolved (2) Hypertension affecting in third trimester ICD Codes: O16.3 - Unspecified maternal hypertension, third trimester Status: Acute (3) delivery, delivered, current hospitalization ICD Codes: O82 - Encounter for delivery without indication Assessment and Plan 27 yo female s/p C/S, POD 1 - BP borderline elevated, continue Mg until 3 pm - Continue routine care - Motrin PRN pain - Encourage OOB - Pelvic rest x 6 wks. Will need 1 week incision check. - Contraception: Undecided - Anticipate D/C 10/17 Juan Dover MD Oct 15, 2017 09:06
[2017-10-15] MEDS: IBUPROFEN 600 MG TAB PO PRN (12:49)
[2017-10-15] MEDS ORDERED: MEASLES, MUMPS, RUBELLA VACCINE 0.5 ML VIAL SQ ONE (16:00)
[2017-10-15] MEDS ORDERED: DIPHTH/TETANUS/ACEL PERTUSSIS (BOOSTER) 0.5 ML VIAL/PFS IM ONE (16:00)
[2017-10-15] MEDS: oxyCODONE/ACETAMINOPHEN 5 MG/325 MG TAB PO PRN ×2 (17:39→22:19)
[2017-10-16] VITALS (7 sets, daily range): BP systolic 137–149; BP diastolic 81–89; PULSE 87–127; RESP 18–20; TEMP 98.4–99.8
[2017-10-16] MEDS: IBUPROFEN 600 MG TAB PO PRN ×4 (05:59→23:51)
[2017-10-16] MEDS: oxyCODONE/ACETAMINOPHEN 5 MG/325 MG TAB PO PRN ×4 (05:59→21:21)
--- NOTE | 2017-10-16 07:26 | HHI.OB ---
Subjective Post Operative Day: 2 Remarks Postoperative day number 2. AFVSS overnight. Pain well-controlled. Incision not draining. Decreased lochia. Denies dysuria. No breast tenderness. She is feeding the baby via breast. Appetite good. No nausea or vomiting. + flatus. no bowel movement. Ambulating well. Denies calf pain, shortness of breath, or cough. Pt is experiencing some bilateral pedal edema. Otherwise, she is doing well this morning and has no other complaints. Objective Vitals/I&O Vital Signs Date Time Temp Pulse Resp B/P (MAP) Pulse Ox O2 Delivery O2 Flow Rate FiO2 10/16/17 05:30 108 18 137/87 (104) 10/16/17 05:30 99.7 10/16/17 01:00 99.8 109 18 143/89 (107) 10/16/17 00:00 109 143/89 (107) 10/15/17 19:40 98.4 103 18 150/86 (107) 10/15/17 16:50 98.2 109 18 143/97 (112) 10/15/17 16:20 18 10/15/17 16:00 18 10/15/17 15:07 106 148/84 (105) 10/15/17 15:00 99.6 18 10/15/17 14:00 18 10/15/17 13:00 112 148/88 (108) 10/15/17 12:52 18 10/15/17 12:00 109 141/79 (99) 10/15/17 12:00 18 10/15/17 11:00 18 10/15/17 11:00 115 147/84 (105) 10/15/17 10:00 18 10/15/17 10:00 109 147/89 (108) 10/15/17 09:00 115 154/87 (109) 10/15/17 08:54 98.5 18 10/15/17 08:00 108 157/91 (113) 10/15/17 07:40 16 Result Diagram: 10/12/17205810/12/172058 Objective Remarks GENERAL: Well-nourished, well-developed patient. CARDIOVASCULAR: Regular rate and rhythm without murmurs, gallops, or rubs. RESPIRATORY: Breath sounds equal bilaterally. No accessory muscle use. ABDOMEN/GI: Abdomen soft, non-tender, bowel sounds present. Incision: Clean, dry and intact. Fundus: Firm, moderately tender at umbilicus. GENITOURINARY: Light to moderate bleeding. EXTREMITIES: No cyanosis., 1+ pitting edema to mid matta bilaterally, non-tender , without signs of DVT. Medications and IVs Current Medications Medications (Trade) Dose Ordered Sig/Bravo Route Start Time Stop Time Status Last Admin (Bicitra Liq) [address] ATT[address]ANT PO 10/12/17 22:45 10/16/17 22:44 10/14/17 13:56 (Calcium Gluconate Inj) 1 gm UNSCH PRN IV PUSH 10/13/17 11:00 (NS Flush) 2 ml BID IV FLUSH 10/14/17 21:00 (NS Flush) 2 ml UNSCH PRN IV FLUSH 10/14/17 18:00 (Mylicon Chew) 80 mg QID PRN PO 10/14/17 18:00 (Motrin) 600 mg Q6H PRN PO 10/14/17 18:00 10/16/17 05:59 (Percocet 5-325 Mg) 1 tab Q4H PRN PO 10/14/17 18:00 10/16/17 05:59 (Percocet 5-325 Mg) 2 tab Q4H PRN PO 10/14/17 18:00 10/15/17 22:19 (Zofran Inj) 4 mg Q6H PRN IV PUSH 10/14/17 18:00 (Morphine Inj) 4 mg Q3H PRN IV PUSH 10/14/17 18:00 (Flu (Quadrivalent) Vaccine Inj) 0.5 ml ONCE ONCE IM 10/17/17 10:00 10/17/17 10:01 Assessment/Plan Problem List: (1) 39 weeks gestation of ICD Codes: Z3A.39 - 39 weeks gestation of Status: Resolved (2) Hypertension affecting in third trimester ICD Codes: O16.3 - Unspecified maternal hypertension, third trimester Status: Acute (3) delivery, delivered, current hospitalization ICD Codes: O82 - Encounter for delivery without indication Assessment and Plan 27 yo female s/p C/S, POD 2 - BP has improved. - Continue routine care - Motrin PRN pain - Encourage OOB - Pelvic rest x 6 wks. Will need 1 week incision check. - Contraception: Undecided - Anticipate d/c tomorrow. Cathy Dong MD R1 Oct 16, 2017 07:26
[2017-10-16] MEDS: SODIUM CHLORIDE 0.9% FLUSH 10 ML FLUSH IV FLUSH SCH (09:00)
[2017-10-16] MEDS: SIMETHICONE 80 MG CHEWABLE TAB PO PRN ×3 (11:30→23:52)
[2017-10-16] MEDS ORDERED: diphenhydrAMINE HCL 2%/ZINC ACETATE 0.1% CREAM 30 APPLIC/30 GM TUBE TOPICAL PRN (16:00)
[2017-10-17] VITALS (92 sets, daily range): BP systolic 127–195; BP diastolic 73–113; PULSE 75–124; RESP 16–24; TEMP 98.3–99.2; O2SAT 98–100
[2017-10-17] MEDS: LABETALOL HCL 100 MG TAB PO SCH ×2 (01:15→08:17)
[2017-10-17] MEDS: oxyCODONE/ACETAMINOPHEN 5 MG/325 MG TAB PO PRN ×2 (01:16→06:26)
[2017-10-17] MEDS ORDERED: DOCUSATE SODIUM 50 MG/SENNA 8.6 MG TAB PO PRN (01:30)
[2017-10-17] MEDS: IBUPROFEN 600 MG TAB PO PRN (06:35)
--- NOTE | 2017-10-17 07:20 | HHI.OB ---
Subjective Post Operative Day: 3 Remarks Postoperative day number 3. AFVSS overnight. Pain well-controlled. Incision not draining. Decreased lochia. Denies dysuria. No breast tenderness. She is feeding the baby via bottle. Appetite good. Feels nausea, but no vomiting. + flatus. no bowel movement. Ambulating ok. Denies calf pain, shortness of breath, or cough. No headache, blurry vision, or scotomata. Is still having edema in her legs. Otherwise, she is doing well this morning and has no other complaints. Objective Vitals/I&O Vital Signs Date Time Temp Pulse Resp B/P (MAP) Pulse Ox O2 Delivery O2 Flow Rate FiO2 10/17/17 04:29 98.3 75 18 127/95 (106) 10/17/17 03:15 94 16 151/97 (115) 10/17/17 03:15 98 10/17/17 01:55 162/102 (122) 10/17/17 00:40 98.3 119 20 10/17/17 00:30 166/107 (126) 10/16/17 20:00 99.1 127 20 147/81 (103) 10/16/17 16:29 98.4 98 18 149/84 (105) 10/16/17 12:25 98.5 20 10/16/17 12:25 87 139/88 (105) 10/16/17 08:22 98.7 91 20 143/81 (101) Objective Remarks GENERAL: Well-nourished, well-developed patient. CARDIOVASCULAR: Regular rate and rhythm without murmurs, gallops, or rubs. RESPIRATORY: Breath sounds equal bilaterally. No accessory muscle use. ABDOMEN/GI: Abdomen firm, mildly tender, bowel sounds present. Incision: Clean, dry and intact. Fundus: Firm, moderately tender at umbilicus. GENITOURINARY: Light to moderate bleeding. EXTREMITIES: No cyanosis., 1+ pitting edema to inferior knees bilaterally, non- tender, without signs of DVT. Medications and IVs Current Medications Medications (Trade) Dose Ordered Sig/Bravo Route Start Time Stop Time Status Last Admin (Calcium Gluconate Inj) 1 gm UNSCH PRN IV PUSH 10/13/17 11:00 (NS Flush) 2 ml BID IV FLUSH 10/14/17 21:00 (NS Flush) 2 ml UNSCH PRN IV FLUSH 10/14/17 18:00 (Mylicon Chew) 80 mg QID PRN PO 10/14/17 18:00 10/16/17 23:52 (Motrin) 600 mg Q6H PRN PO 10/14/17 18:00 10/17/17 06:35 (Percocet 5-325 Mg) 1 tab Q4H PRN PO 10/14/17 18:00 10/16/17 05:59 (Percocet 5-325 Mg) 2 tab Q4H PRN PO 10/14/17 18:00 10/17/17 06:26 (Zofran Inj) 4 mg Q6H PRN IV PUSH 10/14/17 18:00 (Morphine Inj) 4 mg Q3H PRN IV PUSH 10/14/17 18:00 (Flu (Quadrivalent) Vaccine Inj) 0.5 ml ONCE ONCE IM 10/17/17 10:00 10/17/17 10:01 (Benadryl 2% Cream) 1 applic TID PRN TOPICAL 10/16/17 16:00 10/16/17 17:27 (Trandate) 100 mg BID PO 10/17/17 01:00 10/17/17 01:15 (Sita-Colace) 2 tab BID PRN PO 10/17/17 01:30 10/17/17 01:16 Assessment/Plan Problem List: (1) 39 weeks gestation of ICD Codes: Z3A.39 - 39 weeks gestation of Status: Resolved (2) Hypertension affecting in third trimester ICD Codes: O16.3 - Unspecified maternal hypertension, third trimester Status: Acute (3) delivery, delivered, current hospitalization ICD Codes: O82 - Encounter for delivery without indication Assessment and Plan 27 yo female s/p C/S, POD 3 - BP was elevated to 166/107 overnight. Received Labetalol at 0115. BP is down to 127/95 this morning. Will likely to home on labetalol. - Due to edema will give one dose of Lasix 20mg. - Continue routine care - Motrin PRN pain - Encourage OOB - Pelvic rest x 6 wks. Will need 1 week incision check. - Contraception: Undecided - Anticipate d/c later today. Cathy Dong MD R1 Oct 17, 2017 07:20
[2017-10-17] MEDS ORDERED: POLYETHYLENE GLYCOL 17 GM PKG PO ONE (07:30)
[2017-10-17] MEDS ORDERED: FUROSEMIDE 20 MG TAB PO ONE (09:00)
[2017-10-17] MEDS ORDERED: INFLUENZA VIRUS VACCINE (QUADRIVALENT) 0.5 ML SYR IM ONE (10:00)
[2017-10-17] MEDS ORDERED: hydrALAZINE HCL 20 MG/ML VIAL IV PUSH ONE ×2 (12:45→15:00)
[2017-10-17] MEDS ORDERED: POTASSIUM CHLORIDE 10 MEQ CONTROLLED RELEASE TAB PO ONE (13:00)
[2017-10-17] MEDS ORDERED: LABETALOL HCL 200 MG TAB PO ONE (13:00)
[2017-10-17] MEDS ORDERED: BISACODYL 10 MG SUPP RECTAL ONE (13:00)
[2017-10-17] MEDS ORDERED: KETOROLAC TROMETHAMINE 60 MG/2 ML (IM) VIAL IM SCH (13:30)
--- NOTE | 2017-10-17 13:31 | RADRPT ---
EXAM DATE/TIME: 10/17/2017 12:49 [facility] COMPARISON: None. INDICATIONS : <<Diffuse abdominal pain and distention, three days post section>> MEDICAL HISTORY : None. SURGICAL HISTORY : section. 3 days post op ENCOUNTER: Initial ACUITY: 3 days PAIN SCORE: 10/10 LOCATION: Bilateral abdomen FINDINGS: There is a diffuse ileus. No free air is identified. Mild scoliosis. No acute bony amounts. CONCLUSION: 1. Diffuse gaseous distention of bowel most characteristic of ileus in postoperative patient. No free air. Edi Pfeiffer MD on October 17, 2017 at 13:29 Board Certified Radiologist. This report was verified electronically.
[2017-10-17] MEDS: LACTATED RINGER'S 1000 ML INJ 1,000 ML IV SCH (13:55)
--- NOTE | 2017-10-17 14:07 | HHI.FPPN ---
Addendum to progress note ADDENDUM Reason for addendum: Additonal documentation Additional information S: Residents examined patient around 11:45 am due to worsened BP and abdominal distension. She complained of increased abdominal pain and dizziness. She had ambulated in the hallway with the nurse but still was not able to pass gas today. She had not yet had a bowel movement although she is normally regular. Last BM was on 10/19 before her . She denied chest pain or shortness of breath. She had vomited a small amount of fluid material and felt very nauseous. Her BP was elevated in the 160's and later increased to 174/113 on recheck around 12:30pm. O: Abd: Diffusely tender abdomen with guarding. Ext: Pitting edema to below knees. Neuro: AOx3 Imaging: KUB was performed at bedside which showed ileus with no free air A/P: 27 s/p CS POD3 presenting with ileus and elevated blood pressure. -NPO except for meds -Start LR at 100 mls/hr -Hydralazine 5 mg IV once -Increase Labetalol to 200mg PO TID with a dose to be given now -Frequent BP checks -SCDs -Low threshold to transfer to antepartum floor for magnesium if BP worsens or does not improve on medication SDW with Dr. Dong, PGY1 DW with Dr. Hernandez (Jolie Gonzalez MD) Additional information Please see separate attending note. I personally saw and evaluated patient when no improvement of blood pressures. Patient was transferred to L&D for management of elevated BP which did not improved significantly with IV hydralazine but showed noted improvement with IV labetolol. Will manage ileus with NGT and conservative management, bowel rest, NPO. SMS (Jacquelin Hernandez MD) Jolie Gonzalez MD Oct 17, 2017 14:07 Jacquelin Hernandez MD Oct 18, 2017 14:40
[2017-10-17] MEDS: KETOROLAC TROMETHAMINE 30 MG/ML (IVP) VIAL IV PUSH SCH ×2 (14:34→20:00)
[2017-10-17] MEDS ORDERED: LABETALOL HCL 100 MG/20 ML VIAL IV PUSH ONE (15:00)
[2017-10-17 15:17] LABS: ALKALINE PHOSPHATASE 108 U/L (45-117); ALT (GPT) 17 U/L (10-53); TOTAL BILIRUBIN ADULT 0.3 MG/DL (0.2-1.0); TOTAL PROTEIN 7.1 GM/DL (6.4-8.2)
[2017-10-17] MEDS ORDERED: MAGNESIUM SULFATE 4 GM PREMIX 100 ML ONE (15:22)
[2017-10-17] MEDS ORDERED: MAGNESIUM SULFATE 4 GM PREMIX 100 ML IV ONE (15:30)
[2017-10-17 15:31] LABS: ALBUMIN 2.5 GM/DL (3.4-5.0); AST (GOT) 25 U/L (15-37); BLOOD UREA NITROGEN 8 MG/DL (7-18); CALCIUM 8.8 MG/DL (8.5-10.1); CHLORIDE 96 MEQ/L (98-107); CREATININE 0.76 MG/DL (0.50-1.00); GLOMERULAR FILTRATION RATE 109 ML/MIN (>89); GLUCOSE,RANDOM 97 MG/DL (74-106); SODIUM (NA) 135 MEQ/L (136-145)
--- NOTE | 2017-10-17 15:39 | HHI.FPPN ---
Addendum to progress note ADDENDUM Reason for addendum: Additonal documentation Additional information S: Patient continues to have elevated BP, 188/108 at 1436, despite treatment with Hydralazine 5mg IV and Labetalol 200mg IV. I went to the Mother/Baby floor to assess pt with OB attending, Dr. Hernandez. Pt stated that she was tired due to lack of sleep and was having pain in her abdomen. BP was taken, was in the 180s/ 100s. Patient was given Hydralazine 10mg IV with no change in BP. She was then given Labetalol 20mg IV when decreased her BP to 149/89. She was then transferred to the OB floor. O: General: Patient sitting in wheelchair at bedside with eyes closed, in no acute distress. GI: Abdomen distended Extremities: 1+ pitting edema to inferior knees. A/P: Pre-Eclampsia - Patient transfer to OB floor - Will start Magnesium sulfate IV - Continue Labetalol 200mg TID - Monitor Vitals and I&Os Post-Operative Ileus - Place NG tube to suction - Bowel rest (Cathy Dong MD R1) Reason for addendum: Corrected documentation (Correction to above, patient received labetolol 200mg PO, followed by 20mg IV) Additional information Please see separate attending note. I personally saw and evaluated patient, managed elevated BP as per protocol and transferred patient to L&D for closer observation and magnesium sulfate. SMS (Jacquelin Hernandez MD) Cathy Dong MD R1 Oct 17, 2017 15:39 Jacquelin Hernandez MD Oct 18, 2017 14:42
--- NOTE | 2017-10-17 15:42 | HHI.PR ---
Subjective Remarks [facility] Attending Patient is a 27y/o P1001 who is POD#3 from a primary section for failure to progress. She remained on L&D postoperatively for preeclampsia. She was transferred to the floor yesterday and noted to have elevated blood pressures overnight. She was started on labetalol 100 mg 2 twice a day. Her blood pressures continued to be elevated, she received 1 dose of IV hydralazine 5 mg, however continued to have elevated blood pressures. I was notified of blood pressures in the 180s/100s. I presented to the patient's room to further evaluate and be present during administration of IV medication. The patient received an additional 10 mg of IV hydralazine with mild improvement in blood pressure. However her blood pressure again elevated to receive 20 mg of IV labetalol. Subsequent to this her blood pressures were in the 150s over 90s. She denies any symptoms of headache, visual changes, right upper quadrant or epigastric pain, or any other neurological changes. She reports she's tired from not sleeping well. She reports that she has some nausea but denies any emesis. She reports that her abdomen is distended and that she passes small amount of gas yesterday but none today. Of note a KUB performed showed an ileus but no free air. The decision was made to transfer the patient to antepartum and restart magnesium sulfate for seizure prophylaxis. Her blood pressure remained stable in the 150s over 90s. She appears to have normal mentation and no focal neurological deficits. In addition, due to the patient' s level of discomfort, we will have an NG tube placed. We will monitor the patient very closely. The patient was counseled and all of her questions were answered. Objective Vital Signs Date Time Temp Pulse Resp B/P (MAP) Pulse Ox O2 Delivery O2 Flow Rate FiO2 10/17/17 15:10 149/84 (105) 10/17/17 14:36 103 10/17/17 14:36 188/108 (134) 10/17/17 13:52 166/106 (126) 10/17/17 13:15 195/109 (137) 10/17/17 13:00 89 22 10/17/17 12:30 174/113 (133) 10/17/17 09:48 78 160/99 (119) 10/17/17 08:00 98.6 93 20 10/17/17 08:00 155/102 (119) 10/17/17 04:29 98.3 75 18 127/95 (106) 10/17/17 03:15 94 16 151/97 (115) 10/17/17 03:15 98 10/17/17 01:55 162/102 (122) 10/17/17 00:40 98.3 119 20 10/17/17 00:30 166/107 (126) 10/16/17 20:00 99.1 127 20 147/81 (103) 10/16/17 16:29 98.4 98 18 149/84 (105) Result Diagram: 10/17/17 1422 Jacquelin Hernandez MD Oct 17, 2017 15:42
[2017-10-17] MEDS ORDERED: LABETALOL HCL 100 MG TAB PO SCH (16:00)
[2017-10-17 16:05] LABS: HEMATOCRIT 25.6 % (35.0-46.0); HEMOGLOBIN 8.8 GM/DL (11.6-15.3); MEAN CELL VOLUME 87.8 FL (80.0-100.0); MEAN CORPUSCULAR HEMOGLOBIN 30.4 PG (27.0-34.0); MEAN CORPUSCULAR HGB CONC 34.6 % (32.0-36.0); MEAN PLATELET VOLUME 9.1 FL (7.0-11.0); PLATELET COUNT 296 TH/MM3 (150-450); RED BLOOD COUNT 2.91 MIL/MM3 (4.00-5.30); RED CELL DISTRIBUTION WIDTH 13.9 % (11.6-17.2); WHITE BLOOD COUNT 17.7 TH/MM3 (4.0-11.0)
[2017-10-17] MEDS ORDERED: MAGNESIUM SULFATE 40 GM PREMIX 1,000 ML ONE (16:11)
[2017-10-17] MEDS: MAGNESIUM SULFATE 40 GM PREMIX 1,000 ML IV SCH (16:13)
[2017-10-17 16:23] LABS: INTERNATIONAL NORMALIZED RATIO 0.9 RATIO; PROTHROMBIN TIME - PATIENT 9.1 SEC (9.8-11.6)
[2017-10-17] MEDS ORDERED: LIDOCAINE HCL 2% JELLY 5 ML SYRINGE TOPICAL ONE (16:45)
--- NOTE | 2017-10-17 16:54 | RADRPT ---
EXAM DATE/TIME: 10/17/2017 16:24 [facility] COMPARISON: None. INDICATIONS : <<Post NG tube placement>> MEDICAL HISTORY : None. SURGICAL HISTORY : section. ENCOUNTER: Subsequent ACUITY: 3 days PAIN SCORE: 0/10 LOCATION: Bilateral abdomen FINDINGS: NG tip is looped in the stomach. There is diffuse gaseous distention of bowel most characteristic of ileus. No free air identified. CONCLUSION: 1. Ileus. NG tube in stomach. Edi Pfeiffer MD on October 17, 2017 at 16:51 Board Certified Radiologist. This report was verified electronically.
--- NOTE | 2017-10-17 21:09 | HHI.PR ---
Subjective Remarks [facility] Attending Patient is a 27y/o P1001 who is POD#3 from a primary section for failure to progress. She remained on L&D postoperatively for preeclampsia. She was transferred to the floor yesterday and noted to have elevated blood pressures overnight which continued into the afternoon today. She was transferred up for elevated blood pressures in the 180s/100s after receiving IV hydralazine 2 and IV labetalol 20 mg. Of note, she has a postoperative ileus and an NG tube was placed. X-ray confirmed adequate placement. The [facility] Nurse, Elvira Kumar, came to assist with evaluation of the NG tube. Under auscultation she was able to confirm adequate placement she and provided additional education on NG tube output. At this time there were no other recommendations for changes and management. Will obtain a KUB in the morning, and perform serial abdominal examinations overnight. The repeat labs in the a.m. We will continue magnesium sulfate and blood pressure medication as indicated. On physical examination, the patient had decreased bowel sounds but there were no signs of acute abdomen with no rebound and no guarding noted. The abdomen remains distended. We'll continue current management and close observation. Objective Vital Signs Date Time Temp Pulse Resp B/P (MAP) Pulse Ox O2 Delivery O2 Flow Rate FiO2 10/17/17 19:55 103 99 10/17/17 19:50 112 99 10/17/17 19:45 106 99 10/17/17 19:40 108 99 10/17/17 19:35 109 99 10/17/17 19:30 105 99 10/17/17 19:25 106 99 10/17/17 19:20 108 98 10/17/17 19:15 105 98 10/17/17 19:10 107 98 10/17/17 19:00 103 158/91 (113) 10/17/17 19:00 18 10/17/17 18:00 18 10/17/17 18:00 105 152/96 (114) 10/17/17 17:00 99 144/84 (104) 10/17/17 17:00 18 10/17/17 16:55 18 10/17/17 16:55 97 143/80 (101) 10/17/17 16:50 101 149/83 (105) 10/17/17 16:50 18 3/13/18 16:45 98 145/83 (103) 10/17/17 16:43 18 10/17/17 16:40 101 147/80 (102) 10/17/17 16:40 18 10/17/17 16:35 102 18 146/85 (105) 10/17/17 16:30 102 18 152/85 (107) 10/17/17 16:25 98.4 10/17/17 16:25 103 18 152/91 (111) 10/17/17 16:23 102 151/95 (113) 10/17/17 16:20 102 156/92 (113) 10/17/17 16:15 104 149/100 (116) 10/17/17 16:10 106 152/89 (110) 10/17/17 15:19 108 152/99 (116) 10/17/17 15:10 149/84 (105) 10/17/17 15:10 149/84 (105) 10/17/17 15:08 153/90 (111) 10/17/17 15:06 164/93 (116) 10/17/17 15:04 168/80 (109) 10/17/17 14:55 183/106 (131) 10/17/17 14:36 103 10/17/17 14:36 188/108 (134) 10/17/17 13:52 166/106 (126) 10/17/17 13:15 195/109 (137) 10/17/17 13:00 89 22 10/17/17 12:30 174/113 (133) 10/17/17 09:48 78 160/99 (119) 10/17/17 08:00 98.6 93 20 10/17/17 08:00 155/102 (119) 10/17/17 04:29 98.3 75 18 127/95 (106) 10/17/17 03:15 94 16 151/97 (115) 10/17/17 03:15 98 10/17/17 01:55 162/102 (122) 10/17/17 00:40 98.3 119 20 10/17/17 00:30 166/107 (126) Result Diagram: 10/17/17 1540 10/17/17 1422 Jacquelin Hernandez MD Oct 17, 2017 21:09
--- NOTE | 2017-10-17 23:31 | RADRPT ---
EXAM DATE/TIME: 10/17/2017 23:14 [facility] COMPARISON: No previous studies available for comparison. INDICATIONS : Short of breath. MEDICAL HISTORY : None. SURGICAL HISTORY : section. ENCOUNTER: Subsequent ACUITY: 2 days PAIN SCORE: 0/10 LOCATION: Bilateral chest FINDINGS: A single portable frontal view of the chest is a vague groundglass opacity within the medial right laura ng base. Left lung is clear. No effusions. Heart is normal in size. Nasogastric tube is coiled within the body of the stomach. CONCLUSION: Right lower lobe infiltrate. Aime Garcia Jr., MD on October 17, 2017 at 23:28 Board Certified Radiologist. This report was verified electronically.
--- NOTE | 2017-10-17 23:41 | HHI.PR ---
Subjective Remarks [facility] Attending 3 Patient is a 27y/o P1001 who is POD#3 from a primary section for failure to progress. She remained on L&D postoperatively for preeclampsia. She was transferred back to L&D this afternoon for elevated BP 188/108. These improved to 150s/90s after IV labetolol. She is on magnesium sulfate. Of note , she has a postoperative ileus and an NG tube was placed this afternoon. At approximately 2300, the patient had an acute episode of choking and the snesation of being unable to breath. She had an episode of projectile emesis and was having difficulty breathing. SpO2 99-100%, BP elevated during episode but returned to current baseline. The [facility] team was called to assist in evaluation and a consult placed to Dr. Duarte, who presented to bedside to assist with evaluation and management. CTAB, RRR except tachycaria. Abdomen distended with decreased BS, but appears slightly less distended from prior exam. No rebound/guarding, appropriately tender. Patient's status progressively improved to resting comfortable with stable VS. Discussed with Dr. Duarte possible etiologies, including choking on EGT and need for additional suction. Chest X-ray and additional evaluation ordered by Dr. Duarte. Discussed possible transfer to ICU, but patient status has improved and she appears stable at this time and is resting comfortably. Will move to 1:1 nursing. Will monitor closely. Objective Vital Signs Date Time Temp Pulse Resp B/P (MAP) Pulse Ox O2 Delivery O2 Flow Rate FiO2 10/17/17 23:38 99.2 10/17/17 23:37 110 158/98 (118) 10/17/17 23:12 114 173/100 (124) 10/17/17 23:10 117 100 10/17/17 23:09 118 166/97 (120) 10/17/17 23:05 121 100 10/17/17 23:00 118 191/107 (135) 98 10/17/17 23:00 120 10/17/17 22:51 98.5 10/17/17 22:50 124 100 10/17/17 22:49 22 10/17/17 22:45 117 100 10/17/17 22:40 106 100 10/17/17 22:35 103 99 10/17/17 22:30 104 100 10/17/17 22:25 104 100 3/13/18 22:20 106 99 10/17/17 22:15 110 10/17/17 22:15 99 10/17/17 22:10 100 10/17/17 22:10 115 10/17/17 22:05 100 10/17/17 22:05 117 10/17/17 22:00 113 10/17/17 22:00 100 10/17/17 22:00 111 158/73 (101) 10/17/17 21:55 107 99 10/17/17 21:50 112 100 10/17/17 21:45 110 99 10/17/17 21:40 110 99 10/17/17 21:35 109 100 10/17/17 21:30 107 99 10/17/17 21:25 108 99 10/17/17 21:20 109 99 10/17/17 21:15 109 100 10/17/17 21:10 109 99 10/17/17 21:05 109 100 10/17/17 21:00 107 99 10/17/17 21:00 106 10/17/17 21:00 150/77 (101) 10/17/17 20:55 111 10/17/17 20:55 99 10/17/17 20:50 122 10/17/17 20:50 99 10/17/17 20:45 111 10/17/17 20:45 98 10/17/17 20:40 116 10/17/17 20:40 99 10/17/17 20:35 117 10/17/17 20:35 99 10/17/17 20:30 109 10/17/17 20:30 99 10/17/17 20:25 99 10/17/17 20:25 110 10/17/17 20:20 98 10/17/17 20:20 108 10/17/17 20:15 98 10/17/17 20:15 107 10/17/17 20:10 106 99 10/17/17 20:05 107 99 10/17/17 20:00 104 10/17/17 20:00 106 152/79 (103) 98 10/17/17 19:55 103 99 10/17/17 19:50 112 99 10/17/17 19:45 106 99 10/17/17 19:40 108 99 3/13/18 19:35 109 99 10/17/17 19:30 105 99 10/17/17 19:25 106 99 10/17/17 19:20 108 98 10/17/17 19:15 105 98 10/17/17 19:10 107 98 10/17/17 19:00 103 158/91 (113) 10/17/17 19:00 18 10/17/17 18:00 18 10/17/17 18:00 105 152/96 (114) 10/17/17 17:00 99 144/84 (104) 10/17/17 17:00 18 10/17/17 16:55 18 10/17/17 16:55 97 143/80 (101) 10/17/17 16:50 101 149/83 (105) 10/17/17 16:50 18 10/17/17 16:45 98 145/83 (103) 10/17/17 16:43 18 10/17/17 16:40 101 147/80 (102) 10/17/17 16:40 18 10/17/17 16:35 102 18 146/85 (105) 10/17/17 16:30 102 18 152/85 (107) 10/17/17 16:25 98.4 10/17/17 16:25 103 18 152/91 (111) 10/17/17 16:23 102 151/95 (113) 10/17/17 16:20 102 156/92 (113) 10/17/17 16:15 104 149/100 (116) 10/17/17 16:10 106 152/89 (110) 10/17/17 15:19 108 152/99 (116) 10/17/17 15:10 149/84 (105) 10/17/17 15:10 149/84 (105) 10/17/17 15:08 153/90 (111) 10/17/17 15:06 164/93 (116) 10/17/17 15:04 168/80 (109) 10/17/17 14:55 183/106 (131) 10/17/17 14:36 103 10/17/17 14:36 188/108 (134) 10/17/17 13:52 166/106 (126) 10/17/17 13:15 195/109 (137) 10/17/17 13:00 89 22 10/17/17 12:30 174/113 (133) 10/17/17 09:48 78 160/99 (119) 10/17/17 08:00 98.6 93 20 10/17/17 08:00 155/102 (119) 10/17/17 04:29 98.3 75 18 127/95 (106) 10/17/17 03:15 94 16 151/97 (115) 10/17/17 03:15 98 10/17/17 01:55 162/102 (122) 10/17/17 00:40 98.3 119 20 10/17/17 00:30 166/107 (126) Result Diagram: 10/17/17 1540 10/17/17 1422 Jacquelin Hernandez MD Oct 17, 2017 23:41
[2017-10-18] VITALS (115 sets, daily range): BP systolic 142–173; BP diastolic 85–102; PULSE 99–116; RESP 16–20; TEMP 98–98.4; O2SAT 93–99
--- NOTE | 2017-10-18 00:07 | PD.CONS ---
HPI Service Critical Care Medicine Consult Requested By Dr. Halle Hernandez Reason for Consult Respiratory distress Primary Care Physician No Primary Care Physician History of Present Illness 27-year-old female from [place] who was admitted to [facility] 10/12/17 after she had presented to her primary OB office due to headache, edema, HTN. U/a dip negative for protein. Labor was induced and she ultimately underwent on 10/14/17 due to failed induction. Postoperatively she developed ileus. NGT was placed the afternoon of 10/17 without difficulty. She states she has felt SOB ever since NGT was placed. She then had an episode of vomiting while NGT was in place and then was reportedly choking and in respiratory distress. [facility] was called. OB hospitalist called me and asked for my assistance. Pts sats were normal on RA. She states she is still feeling SOB but it is better than it was.Heart rate 110-120s, SBP 150s. No cough, no chest pain. Reportedly had low grade temp 100.1. No h/o VTE. Review of Systems Constitutional: DENIES: Fever, Chills Respiratory: COMPLAINS OF: Shortness of breath, DENIES: Wheezing Cardiovascular: DENIES: Chest pain Gastrointestinal: COMPLAINS OF: Nausea, Vomiting Musculoskeletal: DENIES: Joint Swelling Neurologic: DENIES: Headache Past Family Social History Allergies: Uncoded Allergies: TIN (Allergy, Intermediate, SWELLING, 03/07/17) Past Medical History None Past Surgical History section Reported Medications multivitamin Family History Patient denies significant family medical history. Social History From [place]. Has lived here 3 months. Lifetime nonsmoker Drink alcohol occasionally No illicit drug use Physical Exam Vital Signs Vital Signs Date Time Temp Pulse Resp B/P (MAP) Pulse Ox O2 Delivery O2 Flow Rate FiO2 10/17/17 23:38 99.2 10/17/17 23:37 110 158/98 (118) 10/17/17 23:12 114 173/100 (124) 10/17/17 23:10 117 100 10/17/17 23:09 118 166/97 (120) 10/17/17 23:05 121 100 10/17/17 23:00 118 191/107 (135) 98 10/17/17 23:00 120 10/17/17 22:51 98.5 10/17/17 22:50 124 100 10/17/17 22:49 22 10/17/17 22:45 117 100 10/17/17 22:40 106 100 10/17/17 22:35 103 99 10/17/17 22:30 104 100 10/17/17 22:25 104 100 10/17/17 22:20 106 99 10/17/17 22:15 110 10/17/17 22:15 99 10/17/17 22:10 100 10/17/17 22:10 115 10/17/17 22:05 100 10/17/17 22:05 117 10/17/17 22:00 113 10/17/17 22:00 100 10/17/17 22:00 111 158/73 (101) 10/17/17 21:55 107 99 10/17/17 21:50 112 100 10/17/17 21:45 110 99 10/17/17 21:40 110 99 10/17/17 21:35 109 100 10/17/17 21:30 107 99 10/17/17 21:25 108 99 10/17/17 21:20 109 99 10/17/17 21:15 109 100 10/17/17 21:10 109 99 10/17/17 21:05 109 100 10/17/17 21:00 107 99 10/17/17 21:00 106 10/17/17 21:00 150/77 (101) 10/17/17 20:55 111 10/17/17 20:55 99 10/17/17 20:50 122 10/17/17 20:50 99 10/17/17 20:45 111 10/17/17 20:45 98 10/17/17 20:40 116 10/17/17 20:40 99 10/17/17 20:35 117 10/17/17 20:35 99 10/17/17 20:30 109 10/17/17 20:30 99 10/17/17 20:25 99 10/17/17 20:25 110 10/17/17 20:20 98 10/17/17 20:20 108 10/17/17 20:15 98 10/17/17 20:15 107 10/17/17 20:10 106 99 10/17/17 20:05 107 99 10/17/17 20:00 104 10/17/17 20:00 106 152/79 (103) 98 10/17/17 19:55 103 99 10/17/17 19:50 112 99 10/17/17 19:45 106 99 10/17/17 19:40 108 99 10/17/17 19:35 109 99 10/17/17 19:30 105 99 10/17/17 19:25 106 99 10/17/17 19:20 108 98 10/17/17 19:15 105 98 10/17/17 19:10 107 98 10/17/17 19:00 103 158/91 (113) 10/17/17 19:00 18 10/17/17 18:00 18 10/17/17 18:00 105 152/96 (114) 10/17/17 17:00 99 144/84 (104) 10/17/17 17:00 18 10/17/17 16:55 18 10/17/17 16:55 97 143/80 (101) 10/17/17 16:50 101 149/83 (105) 10/17/17 16:50 18 10/17/17 16:45 98 145/83 (103) 10/17/17 16:43 18 10/17/17 16:40 101 147/80 (102) 10/17/17 16:40 18 10/17/17 16:35 102 18 146/85 (105) 10/17/17 16:30 102 18 152/85 (107) 10/17/17 16:25 98.4 10/17/17 16:25 103 18 152/91 (111) 10/17/17 16:23 102 151/95 (113) 10/17/17 16:20 102 156/92 (113) 10/17/17 16:15 104 149/100 (116) 10/17/17 16:10 106 152/89 (110) 10/17/17 15:19 108 152/99 (116) 10/17/17 15:10 149/84 (105) 10/17/17 15:10 149/84 (105) 10/17/17 15:08 153/90 (111) 10/17/17 15:06 164/93 (116) 10/17/17 15:04 168/80 (109) 10/17/17 14:55 183/106 (131) 3/13/18 14:36 103 10/17/17 14:36 188/108 (134) 10/17/17 13:52 166/106 (126) 10/17/17 13:15 195/109 (137) 10/17/17 13:00 89 22 10/17/17 12:30 174/113 (133) 10/17/17 09:48 78 160/99 (119) 10/17/17 08:00 98.6 93 20 10/17/17 08:00 155/102 (119) 10/17/17 04:29 98.3 75 18 127/95 (106) 10/17/17 03:15 94 16 151/97 (115) 10/17/17 03:15 98 10/17/17 01:55 162/102 (122) 10/17/17 00:40 98.3 119 20 10/17/17 00:30 166/107 (126) Physical Exam GENERAL: Well-nourished, well-developed patient who is sitting up in bed. SKIN: Warm and dry, well perfused HEAD: Atraumatic. Normocephalic. EYES: Pupils equal and round. No scleral icterus. No injection or drainage. ENT: No nasal bleeding or discharge. NG tube in place draining nonbloody nonbilious gastric fluid. NECK: Trachea midline. No JVD. CARDIOVASCULAR: Regular rate and rhythm.2/6 systolic murmur LSB. RESPIRATORY: No accessory muscle use. Clear to auscultation. Breath sounds equal bilaterally. On RA. GASTROINTESTINAL: Abdomen soft, distended, bowel sounds are present but hypoactive, mildly tender. Steristrips in place in low transverse incision. MUSCULOSKELETAL: Extremities without clubbing, cyanosis, +1 bipedal edema. No palpable cords. NEUROLOGICAL: Awake and alert. No obvious cranial nerve deficits. Motor grossly within normal limits. Five out of 5 muscle strength in the arms and legs. Normal speech. Laboratory Laboratory Tests Test 10/17/17 14:22 10/17/17 15:40 10/17/17 18:20 Blood Urea Nitrogen 8 Creatinine 0.76 Random Glucose 97 Total Protein 7.1 Albumin 2.5 Calcium Level 8.8 Alkaline Phosphatase 108 Aspartate Amino Transf (AST/SGOT) 25 Alanine Aminotransferase (ALT/SGPT) 17 Total Bilirubin 0.3 Sodium Level 135 Potassium Level 4.1 Chloride Level 96 Carbon Dioxide Level 31.0 Anion Gap 8 Estimat Glomerular Filtration Rate 109 White Blood Count 17.7 Red Blood Count 2.91 Hemoglobin 8.8 Hematocrit 25.6 Mean Corpuscular Volume 87.8 Mean Corpuscular Hemoglobin 30.4 Mean Corpuscular Hemoglobin Concent 34.6 Red Cell Distribution Width 13.9 Platelet Count 296 Mean Platelet Volume 9.1 Prothrombin Time 9.1 Prothromb Time International Ratio 0.9 Activated Partial Thromboplast Time 26.6 Magnesium Level 4.7 Result Diagram: 10/17/17 1540 10/17/17 1422 Assessment and Plan Problem List: (1) Ileus ICD Code: K56.7 - Ileus, unspecified Status: Acute (2) Vomiting ICD Code: R11.10 - Vomiting, unspecified Status: Acute (3) Respiratory distress ICD Code: R06.03 - Acute respiratory distress Status: Resolved (4) First trimester ICD Code: Z34.90 - Encounter for supervision of normal , unspecified, unspecified trimester Status: Acute (5) Failed induction of labor ICD Code: O61.9 - Failed induction of labor, unspecified Status: Acute (6) delivery, delivered, current hospitalization ICD Code: O82 - Encounter for delivery without indication Status: Acute (7) Pre-eclampsia ICD Code: O14.90 - Unspecified pre-eclampsia, unspecified trimester Status: Acute Assessment and Plan NEURO: Acetaminophen as needed for pain Monitor neuro status RESP: Respiratory distress Respiratory distress following episode of vomiting with concern for aspiration. At this point she is doing well on RA and if she did have some chemical aspiration would monitor off antibiotics at this point. CXR looks clear to me, per report RLL infiltrate. Would not treat at this point. PE seems clinically less likely though elevated risk in post- state, will r/o with VQ per d/w Dr. Hernandez. Suspicion is low so will not empirically use therapeutic anticoagulation at this time CV: Sinus tachycardia HTN Systolic murmur Monitor hemodynamics. Labetalol 20 mg by mouth 3 times a day with additional labetalol 10 mg IV every 4 hours as needed. Obtain 2 D Echo GI: Ileus Vomiting NGT coiled and may have been kinked resulting in vomiting. NGT pulled back and repositioned, now to LIWS Reglan 10 mg IV q8 hours CALL OUT CLERK: Preeclampsia s/p 10/14 after failed induction of labor Magnesium sulfate drip. Antihypertensives as per above FEN/RENAL: Voiding, normal creatinine. Monitor electrolytes and replace as indicated. Magnesium drip as per above ID: Monitor for signs and symptoms of infection. Would monitor off antibiotics at this time. HEME: Monitor CBC ENDO: Euglycemic PROPH: SCDS/ Heparin 5000 units subcutaneous q 8 hours for DVT prophylaxis, discussed with OB hospitalist. ACCESS: Peripheral IV providing adequate access at this time Discussed with OB bedside nurse, RT, Ele nurse and Dr. Hernandez. Patient currently does not meet criteria for ICU bed admission, though I will follow her course overnight and CCM to followup imaging. When off magnesium drip, could be transitioned to med/surg for management of ileus when bed available. Level 2 Consult Aurelia Duarte MD Oct 18, 2017 00:07
[2017-10-18] MEDS ORDERED: LABETALOL HCL 100 MG/20 ML VIAL IV PUSH PRN (00:15)
[2017-10-18] MEDS: KETOROLAC TROMETHAMINE 30 MG/ML (IVP) VIAL IV PUSH SCH ×2 (02:00→21:25)
[2017-10-18] MEDS: LACTATED RINGER'S 1000 ML INJ 1,000 ML IV SCH ×2 (03:16→19:01)
--- NOTE | 2017-10-18 03:29 | HHI.PR ---
Subjective Remarks [facility] Attending 3 Patient is a 27y/o P1001 who is POD#3 from a primary section for failure to progress. She remained on L&D postoperatively for preeclampsia. She was transferred back to L&D this afternoon for elevated BP 188/108. These improved to 150s/90s after IV labetolol. She is on magnesium sulfate. Of note , she has a postoperative ileus and an NG tube was placed this afternoon. At approximately 2300, the patient had an acute episode of choking and the sensation of being unable to breath. She had an episode of projectile emesis and was having difficulty breathing. SpO2 99-100%, BP elevated during episode but returned to current baseline. [facility] in evaluation and a consult placed to Dr. Duarte, who presented to bedside to assist with evaluation and management. At that time her PE was unremarkable except Abdomen distended with decreased BS, but appears slightly less distended from prior exam. Her VS improved and Patient's status progressively improved to resting comfortable with stable VS. At this time, she is sleeping and appears to be comfortable. Her BP stable 150s/90s, and other VSS. Will continue to monitor closely. Repeat KUB and labs in am. Plan for VQ, echo in am. Objective Vital Signs Date Time Temp Pulse Resp B/P (MAP) Pulse Ox O2 Delivery O2 Flow Rate FiO2 10/18/17 03:05 104 98 10/18/17 03:00 102 149/96 (113) 98 10/18/17 03:00 106 10/18/17 02:55 103 98 10/18/17 02:50 104 98 10/18/17 02:45 103 98 10/18/17 02:40 103 98 10/18/17 02:35 105 98 10/18/17 02:30 109 98 10/18/17 02:25 109 98 10/18/17 02:20 110 98 10/18/17 02:15 102 98 10/18/17 02:10 101 98 10/18/17 02:05 102 98 10/18/17 02:00 101 158/90 (112) 10/18/17 01:59 102 98 10/18/17 01:55 98 10/18/17 01:55 102 10/18/17 01:50 98 10/18/17 01:50 101 10/18/17 01:45 99 10/18/17 01:45 98 10/18/17 01:40 98 10/18/17 01:40 100 10/18/17 01:35 102 98 10/18/17 01:30 101 98 10/18/17 01:25 101 98 10/18/17 01:20 100 98 10/18/17 01:15 101 98 10/18/17 01:10 102 98 10/18/17 01:05 102 98 10/18/17 01:00 101 152/96 (114) 10/18/17 01:00 102 98 10/18/17 00:55 100 98 10/18/17 00:50 103 98 10/18/17 00:45 102 98 10/18/17 00:40 103 98 10/18/17 00:35 104 98 10/18/17 00:34 20 10/18/17 00:30 105 98 10/18/17 00:25 105 159/97 (117) 10/18/17 00:05 110 10/18/17 00:05 99 10/18/17 00:00 113 173/102 (125) 10/18/17 00:00 98 10/18/17 00:00 116 10/17/17 23:55 106 10/17/17 23:55 98 10/17/17 23:50 106 98 10/17/17 23:45 109 99 10/17/17 23:40 109 99 10/17/17 23:38 99.2 10/17/17 23:37 110 158/98 (118) 10/17/17 23:12 114 173/100 (124) 10/17/17 23:10 117 100 10/17/17 23:09 118 166/97 (120) 10/17/17 23:05 121 100 10/17/17 23:00 118 191/107 (135) 98 10/17/17 23:00 120 10/17/17 22:55 100 21 10/17/17 22:51 98.5 10/17/17 22:50 124 100 10/17/17 22:49 22 10/17/17 22:45 117 100 10/17/17 22:40 106 100 10/17/17 22:35 103 99 10/17/17 22:30 104 100 10/17/17 22:25 104 100 3/13/18 22:20 106 99 10/17/17 22:15 110 10/17/17 22:15 99 10/17/17 22:10 100 10/17/17 22:10 115 10/17/17 22:05 100 10/17/17 22:05 117 10/17/17 22:00 113 10/17/17 22:00 100 10/17/17 22:00 111 158/73 (101) 10/17/17 21:55 107 99 10/17/17 21:50 112 100 10/17/17 21:45 110 99 10/17/17 21:40 110 99 10/17/17 21:35 109 100 10/17/17 21:30 107 99 10/17/17 21:25 108 99 10/17/17 21:20 109 99 10/17/17 21:15 109 100 10/17/17 21:10 109 99 10/17/17 21:05 109 100 10/17/17 21:00 107 99 10/17/17 21:00 106 10/17/17 21:00 150/77 (101) 10/17/17 20:55 111 10/17/17 20:55 99 10/17/17 20:50 122 10/17/17 20:50 99 10/17/17 20:45 111 10/17/17 20:45 98 10/17/17 20:40 116 10/17/17 20:40 99 10/17/17 20:35 117 10/17/17 20:35 99 10/17/17 20:30 109 10/17/17 20:30 99 10/17/17 20:25 99 10/17/17 20:25 110 10/17/17 20:20 98 10/17/17 20:20 108 10/17/17 20:15 98 10/17/17 20:15 107 10/17/17 20:10 106 99 10/17/17 20:05 107 99 10/17/17 20:00 104 10/17/17 20:00 106 152/79 (103) 98 10/17/17 19:55 103 99 10/17/17 19:50 112 99 10/17/17 19:45 106 99 10/17/17 19:40 108 99 3/13/18 19:35 109 99 10/17/17 19:30 105 99 10/17/17 19:25 106 99 10/17/17 19:20 108 98 10/17/17 19:15 105 98 10/17/17 19:10 107 98 10/17/17 19:00 103 158/91 (113) 10/17/17 19:00 18 10/17/17 18:00 18 10/17/17 18:00 105 152/96 (114) 10/17/17 17:00 99 144/84 (104) 10/17/17 17:00 18 10/17/17 16:55 18 10/17/17 16:55 97 143/80 (101) 10/17/17 16:50 101 149/83 (105) 10/17/17 16:50 18 10/17/17 16:45 98 145/83 (103) 10/17/17 16:43 18 10/17/17 16:40 101 147/80 (102) 10/17/17 16:40 18 10/17/17 16:35 102 18 146/85 (105) 10/17/17 16:30 102 18 152/85 (107) 10/17/17 16:25 98.4 10/17/17 16:25 103 18 152/91 (111) 10/17/17 16:23 102 151/95 (113) 10/17/17 16:20 102 156/92 (113) 10/17/17 16:15 104 149/100 (116) 10/17/17 16:10 106 152/89 (110) 10/17/17 15:19 108 152/99 (116) 10/17/17 15:10 149/84 (105) 10/17/17 15:10 149/84 (105) 10/17/17 15:08 153/90 (111) 10/17/17 15:06 164/93 (116) 10/17/17 15:04 168/80 (109) 10/17/17 14:55 183/106 (131) 10/17/17 14:36 103 10/17/17 14:36 188/108 (134) 10/17/17 13:52 166/106 (126) 10/17/17 13:15 195/109 (137) 10/17/17 13:00 89 22 10/17/17 12:30 174/113 (133) 10/17/17 09:48 78 160/99 (119) 10/17/17 08:00 98.6 93 20 10/17/17 08:00 155/102 (119) 10/17/17 04:29 98.3 75 18 127/95 (106) Result Diagram: 10/17/17 1540 10/17/17 1422 Jacquelin Hernandez MD Oct 18, 2017 03:29
[2017-10-18 05:50] LABS: AUTOMATED NEUTROPHIL # 10.4 TH/MM3 (1.8-7.7); BASOPHIL % 0.1 % (0.0-2.0); EOSINOPHIL # 0.1 TH/MM3 (0-0.4); EOSINOPHIL % 0.9 % (0.0-4.0); HEMATOCRIT 21.7 % (35.0-46.0); HEMOGLOBIN 7.4 GM/DL (11.6-15.3); LYMPHOCYTE # 1.7 TH/MM3 (1.0-4.8); MEAN CELL VOLUME 87.1 FL (80.0-100.0); MEAN CORPUSCULAR HEMOGLOBIN 29.7 PG (27.0-34.0); MEAN CORPUSCULAR HGB CONC 34.1 % (32.0-36.0); MEAN PLATELET VOLUME 8.7 FL (7.0-11.0); MONO % 5.6 % (0.0-8.0); MONOCYTE # 0.7 TH/MM3 (0-0.9); NEUT % 80.4 % (16.0-70.0); PLATELET COUNT 281 TH/MM3 (150-450); RED BLOOD COUNT 2.49 MIL/MM3 (4.00-5.30); RED CELL DISTRIBUTION WIDTH 13.6 % (11.6-17.2); WHITE BLOOD COUNT 12.9 TH/MM3 (4.0-11.0)
[2017-10-18] MEDS: HEPARIN SODIUM - SQ 10,000 UNITS/ML VIAL SQ SCH ×3 (06:37→21:33)
[2017-10-18 07:02] LABS: BICARBONATE 29.8 MEQ/L (21.0-32.0); CALCIUM 7.2 MG/DL (8.5-10.1); CALCIUM-PROTEIN CORRECTED 7.8 MG/DL (8.5-10.1); CREATININE 0.63 MG/DL (0.50-1.00); MAGNESIUM 5.9 MG/DL (1.5-2.5); TOTAL BILIRUBIN ADULT 0.2 MG/DL (0.2-1.0); TOTAL PROTEIN 5.9 GM/DL (6.4-8.2)
[2017-10-18 08:10] LABS: BANDS 6 % (0-6); LYMPHOCYTES 7 % (9-44); METAMYELOCYTES 1 % (0-1); MONOCYTES 3 % (0-8); MYELOCYTES 1 % (0-0); NEUTROPHIL # MANUAL DIFF 11.6 TH/MM3 (1.8-7.7); POLYS (SEG NEUTROPHILS) 82 % (16-70)
[2017-10-18] MEDS ORDERED: METOCLOPRAMIDE HCL 10 MG/2 ML VIAL IV PUSH SCH (09:00)
[2017-10-18] MEDS ORDERED: POTASSIUM CHLOR 20 MEQ PREMIX 100 ML IV SCH (09:00)
[2017-10-18] MEDS ORDERED: ACETAMINOPHEN 1000 MG/100 ML 100 ML IV PRN (09:00)
[2017-10-18] MEDS: LABETALOL HCL 100 MG TAB PO SCH ×2 (09:00→17:48)
--- NOTE | 2017-10-18 10:10 | RADRPT ---
EXAM DATE/TIME: 10/18/2017 09:51 [facility] COMPARISON: ABDOMEN KUB ONLY, October 17, 2017, 12:49. INDICATIONS : Ileus. MEDICAL HISTORY : Hypertension. SURGICAL HISTORY : section. ENCOUNTER: Subsequent ACUITY: 2 days PAIN SCORE: 10/10 LOCATION: entire abdomen. FINDINGS: There is gaseous distention of bowel. NG is coiled in the stomach. No free air. CONCLUSION: 1. Diffuse gaseous distention of bowel similar to October 17 most characteristic of ileus. There is nohemi cement of an NG tube which is coiled in the stomach. Edi Pfeiffer MD on October 18, 2017 at 10:07 Board Certified Radiologist. This report was verified electronically.
--- NOTE | 2017-10-18 10:34 | RADRPT ---
EXAM DATE/TIME: 10/18/2017 09:54 [facility] COMPARISON: No previous studies available for comparison. INDICATIONS : Abdominal pain, possible ileus. Status post . ORAL CONTRAST: No oral contrast ingested. RADIATION DOSE: 8.24 CTDIvol (mGy) MEDICAL HISTORY : None SURGICAL HISTORY : section. ENCOUNTER: Initial ACUITY: 2 days PAIN SCALE: 5/10 LOCATION: Bilateral abdomen TECHNIQUE: Volumetric scanning of the abdomen and pelvis was performed. Using automated exposure control and ad justment of the mA and/or kV according to patient size, radiation dose was kept as low as reasonably achievable to obtain optimal diagnostic quality images. DICOM format image data is available electro nically for review and comparison. FINDINGS: Basilar and dependent atelectasis in the lungs. NG coiled in the stomach. No acute findings in the li anahi, spleen, adrenals or pancreas. There is mild right-sided hydronephrosis. There is a diffuse ileus. No definite evidence for obstruction. Booth catheter in bladder. Uterus enlarged with an endometrial cavity characteristic of recent irving an section. There is also air in the anterior abdominal wall likely from recent surgery. CONCLUSION: 1. Diffuse ileus. 2. NG in stomach. Booth catheter in bladder. Mild right hydronephrosis probably related to . Air in the endometrial cavity and anterior abdominal wall likely related to recent section. Edi Pfeiffer MD on October 18, 2017 at 10:08 Board Certified Radiologist. This report was verified electronically.
--- NOTE | 2017-10-18 11:27 | RADRPT ---
EXAM DATE/TIME: 10/18/2017 09:56 [facility] COMPARISON: No previous studies available for comparison. INDICATIONS : Dyspnea. DOSE: 8.7 mCi Tc99m MAA IV 0.6 mCi Tc99m DTPA aerosol MEDICAL HISTORY : None SURGICAL HISTORY : section. ENCOUNTER: Initial ACUITY: 1 day PAIN SCALE: 0/10 LOCATION: chest TECHNIQUE: Following five minutes of tidal breathing of DTPA aerosol, planar images of the lungs were performed in eight projections. The patient was then injected with MAA, and eight-view perfusion scan was perf ormed. FINDINGS: There is a homogeneous pattern of aerosol delivery to the periphery of both lungs. No focal ventilat ory defects are seen. The perfusion lung scan demonstrates a homogenous pattern of uptake in both lungs. No segmental or s ubsegmental defects are seen. CONCLUSION: 1. No evidence for pulmonary embolus. Edi Pfeiffer MD on October 18, 2017 at 11:24 Board Certified Radiologist. This report was verified electronically.
[2017-10-18] MEDS: PANTOPRAZOLE SODIUM 40 MG VIAL IV PUSH SCH ×2 (12:00→21:24)
--- NOTE | 2017-10-18 12:01 | PD.CONS ---
HPI History of Present Illness This is a 27 year old female s/p c section who has developed abd pain and distention, n/v. She has had no BM in 1 week. Denies flatus. GI has been consulted for ileus. KUB showed ileus and NGT was placed yesterday. There is some coffee ground appearance to the NGT output which is brown. Per RN she has not been ambulating. She does feel her pain is mildly improving and her n/v is improved since NGT placement. She is not at this time. She has no prior medical hx and has not ever had an EGD or colonoscopy. (Rochelle Arteaga) PFSH Past Medical History preeclampsia Past Surgical History c section (Rochelle Arteaga) Uncoded Allergies: TIN (Allergy, Intermediate, SWELLING, 03/07/17) Family History denies Social History denies toxic habits (Rochelle Artegaa) Review of Systems Constitutional: DENIES: Fever Endocrine: DENIES: Polydipsia Eyes: DENIES: Blurred vision Ears, nose, mouth, throat: DENIES: Hearing loss Respiratory: DENIES: Cough Cardiovascular: DENIES: Chest pain Gastrointestinal: COMPLAINS OF: Abdominal pain, Constipation, Nausea, Vomiting , DENIES: Black stools, Bloody stools Genitourinary: DENIES: Hematuria Musculoskeletal: DENIES: Joint Swelling Integumentary: DENIES: Jaundice Hematologic/lymphatic: DENIES: Bruising Immunologic/allergic: DENIES: Eczema Neurologic: DENIES: Abnormal gait Psychiatric: DENIES: Confusion (Rochelle Arteaga) GI Exam Vitals I&O Vital Signs Date Time Temp Pulse Resp B/P (MAP) Pulse Ox O2 Delivery O2 Flow Rate FiO2 10/18/17 09:00 16 10/18/17 08:50 107 98 10/18/17 08:45 106 98 10/18/17 08:40 108 97 10/18/17 08:35 107 97 10/18/17 08:30 106 97 10/18/17 08:25 107 97 10/18/17 08:20 106 97 10/18/17 08:15 105 97 10/18/17 08:10 106 97 10/18/17 08:05 105 97 10/18/17 08:00 98.4 16 3/14/18 08:00 106 1418 08:00 107 142/86 (104) 97 14/18 07:55 111 98 14/18 07:50 107 99 10/18/18 07:45 111 97 14/18 07:40 109 97 14/18 07:35 111 97 14/18 07:29 111 97 14/18 07:24 112 97 18 07:19 113 95 18 07:14 113 95 10/18/18 07:09 112 95 14/18 07:04 114 96 10/18/18 07:00 112 94 10/18/18 07:00 109 152/95 (114) 18 06:54 109 93 10/18/18 06:50 108 97 10/18/18 06:45 107 97 10/18/18 06:40 107 96 10/18/18 06:35 108 96 10/18/18 06:30 110 96 10/18/18 06:27 17 10/18/18 06:25 110 96 14/18 06:20 106 96 14/18 06:15 106 96 14/18 06:10 107 96 10/18/18 06:05 112 97 10/18/18 06:00 106 144/100 (115) 96 10/18/18 06:00 108 14/18 05:55 105 96 14/18 05:50 105 96 14/18 05:45 107 97 14/18 05:40 103 96 14/18 05:35 103 96 14/18 05:30 104 96 14/18 05:25 106 96 14/18 05:20 111 97 14/18 05:15 108 14/18 05:15 96 14/18 05:10 104 96 14/18 05:05 105 96 14/18 05:00 103 147/85 (105) 97 14/18 05:00 105 /14/18 04:55 105 97 14/18 04:49 107 97 14/18 04:44 108 96 14/18 04:39 106 96 14/18 04:35 108 97 14/18 04:29 106 97 3/14/18 04:28 98.0 20 3/14/18 04:25 106 97 3/14/18 04:20 110 98 3/14/18 04:15 106 98 3/14/18 04:10 106 98 3/14/18 04:05 109 98 3/14/18 04:00 103 3/14/18 04:00 105 154/89 (110) 98 3/14/18 03:55 105 98 3/14/18 03:50 103 98 3/14/18 03:45 104 98 3/14/18 03:40 103 97 3/14/18 03:36 19 3/14/18 03:35 103 98 3/14/18 03:30 104 98 3/14/18 03:25 106 98 3/14/18 03:20 108 98 3/14/18 03:15 109 98 3/14/18 03:10 104 98 3/14/18 03:05 104 98 3/14/18 03:00 102 149/96 (113) 98 3/14/18 03:00 106 3/14/18 02:55 103 98 3/14/18 02:50 104 98 3/14/18 02:45 103 98 3/14/18 02:40 103 98 3/14/18 02:35 105 98 3/14/18 02:30 109 98 3/14/18 02:25 109 98 3/14/18 02:20 110 98 3/14/18 02:15 102 98 3/14/18 02:10 101 98 3/14/18 02:05 102 98 3/14/18 02:00 101 158/90 (112) 3/14/18 01:59 102 98 3/14/18 01:55 98 3/14/18 01:55 102 3/14/18 01:50 98 3/14/18 01:50 101 3/14/18 01:45 99 3/14/18 01:45 98 3/14/18 01:40 98 3/14/18 01:40 100 3/14/18 01:35 102 98 3/14/18 01:30 101 98 3/14/18 01:25 101 98 3/14/18 01:20 100 98 3/14/18 01:15 101 98 3/14/18 01:10 102 98 3/14/18 01:05 102 98 10/18/17 01:00 101 152/96 (114) 10/18/17 01:00 102 98 10/18/17 00:55 100 98 10/18/17 00:50 103 98 10/18/17 00:45 102 98 10/18/17 00:40 103 98 10/18/17 00:35 104 98 10/18/17 00:34 20 10/18/17 00:30 105 98 10/18/17 00:25 105 159/97 (117) 10/18/17 00:05 110 10/18/17 00:05 99 10/18/17 00:00 113 173/102 (125) 10/18/17 00:00 98 10/18/17 00:00 116 10/17/17 23:55 106 10/17/17 23:55 98 10/17/17 23:50 106 98 10/17/17 23:45 109 99 10/17/17 23:40 109 99 10/17/17 23:38 99.2 10/17/17 23:37 110 158/98 (118) 10/17/17 23:12 114 173/100 (124) 10/17/17 23:10 117 100 10/17/17 23:09 118 166/97 (120) 10/17/17 23:09 24 10/17/17 23:05 121 100 10/17/17 23:00 118 191/107 (135) 98 10/17/17 23:00 120 10/17/17 22:55 100 21 10/17/17 22:51 98.5 10/17/17 22:50 124 100 10/17/17 22:49 22 10/17/17 22:45 117 100 10/17/17 22:40 106 100 10/17/17 22:35 103 99 10/17/17 22:30 104 100 10/17/17 22:25 104 100 10/17/17 22:20 106 99 10/17/17 22:15 110 10/17/17 22:15 99 10/17/17 22:10 100 10/17/17 22:10 115 10/17/17 22:05 100 10/17/17 22:05 117 10/17/17 22:00 113 10/17/17 22:00 100 10/17/17 22:00 111 158/73 (101) 10/17/17 21:55 107 99 10/17/17 21:50 112 100 10/17/17 21:45 110 99 10/17/17 21:40 110 99 10/17/17 21:35 109 100 10/17/17 21:30 107 99 10/17/17 21:25 108 99 10/17/17 21:20 109 99 10/17/17 21:15 109 100 10/17/17 21:10 109 99 10/17/17 21:05 109 100 10/17/17 21:00 107 99 10/17/17 21:00 106 10/17/17 21:00 150/77 (101) 10/17/17 20:55 111 10/17/17 20:55 99 10/17/17 20:50 122 10/17/17 20:50 99 10/17/17 20:45 111 10/17/17 20:45 98 10/17/17 20:40 116 10/17/17 20:40 99 10/17/17 20:35 117 10/17/17 20:35 99 10/17/17 20:30 109 10/17/17 20:30 99 10/17/17 20:25 99 10/17/17 20:25 110 10/17/17 20:20 98 10/17/17 20:20 108 10/17/17 20:15 98 10/17/17 20:15 107 10/17/17 20:10 106 99 10/17/17 20:05 107 99 10/17/17 20:00 104 10/17/17 20:00 106 152/79 (103) 98 10/17/17 19:55 103 99 10/17/17 19:50 112 99 10/17/17 19:45 106 99 10/17/17 19:40 108 99 10/17/17 19:35 109 99 10/17/17 19:30 105 99 10/17/17 19:25 106 99 10/17/17 19:20 108 98 10/17/17 19:15 105 98 10/17/17 19:10 107 98 10/17/17 19:00 103 158/91 (113) 10/17/17 19:00 18 10/17/17 18:00 18 10/17/17 18:00 105 152/96 (114) 10/17/17 17:00 99 144/84 (104) 10/17/17 17:00 18 10/17/17 16:55 18 10/17/17 16:55 97 143/80 (101) 10/17/17 16:50 101 149/83 (105) 10/17/17 16:50 18 10/17/17 16:45 98 145/83 (103) 10/17/17 16:43 18 10/17/17 16:40 101 147/80 (102) 10/17/17 16:40 18 10/17/17 16:35 102 18 146/85 (105) 10/17/17 16:30 102 18 152/85 (107) 10/17/17 16:25 98.4 10/17/17 16:25 103 18 152/91 (111) 10/17/17 16:23 102 151/95 (113) 10/17/17 16:20 102 156/92 (113) 10/17/17 16:15 104 149/100 (116) 10/17/17 16:10 106 152/89 (110) 10/17/17 15:19 108 152/99 (116) 10/17/17 15:10 149/84 (105) 10/17/17 15:10 149/84 (105) 10/17/17 15:08 153/90 (111) 10/17/17 15:06 164/93 (116) 10/17/17 15:04 168/80 (109) 10/17/17 14:55 183/106 (131) 10/17/17 14:36 103 10/17/17 14:36 188/108 (134) 10/17/17 13:52 166/106 (126) 10/17/17 13:15 195/109 (137) 10/17/17 13:00 89 22 10/17/17 12:30 174/113 (133) Imaging Last Impressions Abdomen X-Ray 10/18/17 0800 Signed Impressions: Service Date/Time: Wednesday, October 18, 2017 09:51 - CONCLUSION: 1. Diffuse gaseous distention of bowel similar to October 17 most characteristic of ileus. There is placement of an NG tube which is coiled in the stomach. Edi Pfeiffer MD Lung Scan-V Nuclear Medicine 10/18/17 0000 Signed Impressions: Service Date/Time: Wednesday, October 18, 2017 09:56 - CONCLUSION: 1. No evidence for pulmonary embolus. Edi Pfeiffer MD Abdomen/Pelvis CT 10/18/17 0000 Signed Impressions: Service Date/Time: Wednesday, October 18, 2017 09:54 - CONCLUSION: 1. Diffuse ileus. 2. NG in stomach. Booth catheter in bladder. Mild right hydronephrosis probably related to . Air in the endometrial cavity and anterior abdominal wall likely related to recent section. Edi Pfeiffer MD Chest X-Ray 10/17/17 0000 Signed Impressions: Service Date/Time: Tuesday, October 17, 2017 23:14 - CONCLUSION: Right lower lobe infiltrate. Aime Garcia Jr., MD Laboratory Test 10/17/17 14:22 10/17/17 15:40 10/17/17 18:20 10/18/17 04:30 Blood Urea Nitrogen 8 MG/DL 8 MG/DL Creatinine 0.76 MG/DL 0.63 MG/DL Random Glucose 97 MG/DL 92 MG/DL Total Protein 7.1 GM/DL 5.9 GM/DL Albumin 2.5 GM/DL 2.0 GM/DL Calcium Level 8.8 MG/DL 7.2 MG/DL Alkaline Phosphatase 108 U/L 86 U/L Aspartate Amino Transf (AST/SGOT) 25 U/L 14 U/L Alanine Aminotransferase (ALT/SGPT) 17 U/L 12 U/L Total Bilirubin 0.3 MG/DL 0.2 MG/DL Sodium Level 135 MEQ/L 137 MEQ/L Potassium Level 4.1 MEQ/L 3.2 MEQ/L Chloride Level 96 MEQ/L 96 MEQ/L Carbon Dioxide Level 31.0 MEQ/L 29.8 MEQ/L Anion Gap 8 MEQ/L 11 MEQ/L Estimat Glomerular Filtration Rate 109 ML/MIN 135 ML/MIN White Blood Count 17.7 TH/MM3 12.9 TH/MM3 Red Blood Count 2.91 MIL/MM3 2.49 MIL/MM3 Hemoglobin 8.8 GM/DL 7.4 GM/DL Hematocrit 25.6 % 21.7 % Mean Corpuscular Volume 87.8 FL 87.1 FL Mean Corpuscular Hemoglobin 30.4 PG 29.7 PG Mean Corpuscular Hemoglobin Concent 34.6 % 34.1 % Red Cell Distribution Width 13.9 % 13.6 % Platelet Count 296 TH/MM3 281 TH/MM3 Mean Platelet Volume 9.1 FL 8.7 FL Prothrombin Time 9.1 SEC Prothromb Time International Ratio 0.9 RATIO Activated Partial Thromboplast Time 26.6 SEC B-Type Natriuretic Peptide 49 PG/ML Magnesium Level 4.7 MG/DL 5.9 MG/DL Neutrophils (%) (Auto) 80.4 % Lymphocytes (%) (Auto) 13.0 % Monocytes (%) (Auto) 5.6 % Eosinophils (%) (Auto) 0.9 % Basophils (%) (Auto) 0.1 % Neutrophils # (Auto) 10.4 TH/MM3 Lymphocytes # (Auto) 1.7 TH/MM3 Monocytes # (Auto) 0.7 TH/MM3 Eosinophils # (Auto) 0.1 TH/MM3 Basophils # (Auto) 0.0 TH/MM3 CBC Comment AUTO DIFF Differential Total Cells Counted 100 Neutrophils % (Manual) 82 % Band Neutrophils % 6 % Lymphocytes % 7 % Monocytes % 3 % Neutrophils # (Manual) 11.6 TH/MM3 Metamyelocytes 1 % Myelocytes 1 % Differential Comment FINAL DIFF MANUAL Platelet Estimate NORMAL Platelet Morphology Comment NORMAL Protein Corrected Calcium 7.8 MG/DL Date/Time Source Procedure Growth Status 10/18/17 04:55 Blood Peripheral Aerobic Blood Culture Pending Received 10/18/17 04:55 Blood Peripheral Anaerobic Blood Culture Pending Received Physical Examination HEENT: PERRL; normocephalic; atraumatic; no jaundice. NGT with brown output, some coffee ground appearance CHEST: CTA CARDIAC: RRR ABDOMEN: semifirm, distended, diffuse TTP > LUQ, BS hypoactive. EXTREMITIES: No clubbing, cyanosis, trace BLE edema SKIN: Normal; no rash; no jaundice. TELETYPE MECHANIC: No focal deficits; alert and oriented times three. (Rochelle Arteaga) Assessment and Plan Plan ASSESSMENT - abd distention, pain, n/v, no BM in 1 week - post op ileus. pt ambulating little if at all. KUB showed ileus. CT 10/18/17 showed diffuse ileus, no obstruction. reglan initiated. denies flatus at this time - anemia - normocytic. could be multifactorial in part d/t dilution, recent c section. NGT output does have coffee ground appearance NGT injury? NGT was to medium suction, will put on LIWS she is on heparin PLAN - KUB in am - NPO for now - NGT to LIWS - encourage movement - continue reglan - monitor HH - BID protonix - EGD when ileus resolved, inpt vs outpt pt seen by myself and Dr Gamble and this note is on his behalf (Rochelle Arteaga) Physician Comments Seen and examined, plan as above. Thank you for the consult. (Annette Gamble MD) Rochelle Arteaga Oct 18, 2017 12:01 Annette Gamble MD Oct 19, 2017 09:34
[2017-10-18] MEDS ORDERED: LORazepam 2 MG/ML VIAL ONE (12:19)
[2017-10-18] MEDS: METOCLOPRAMIDE HCL 10 MG/2 ML VIAL IV PUSH SCH ×2 (12:30→16:05)
[2017-10-18] MEDS ORDERED: LORazepam 2 MG/ML VIAL IV PRN (13:00)
[2017-10-18] MEDS ORDERED: POTASSIUM CHLOR 20 MEQ PREMIX 100 ML ONE (16:01)
--- NOTE | 2017-10-18 18:44 | ECHRPT ---
Indication: SOB CONCLUSIONS Normal left ventricular size. Wall thickness is normal. The left ventricular systolic function is normal with an estimated ejection fraction in the range of 60-65%. BP: 152 / 95 HR: 114 Rhythm: MEASUREMENTS (Male / Female) Normal Values Technical Quality: 2D ECHO LV Diastolic Diameter PLAX 5.0 cm 4.2 - 5.9 / 3.9 - 5.3 cm LV Systolic Diameter PLAX 3.4 cm IVS Diastolic Thickness 0.7 cm 0.6 - 1.0 / 0.6 - 0.9 cm LVPW Diastolic Thickness 0.7 cm 0.6 - 1.0 / 0.6 - 0.9 cm LV Relative Wall Thickness 0.3 RV Internal Dim ED PLAX 1.8 cm LA Systolic Diameter LX 2.7 cm 3.0 - 4.0 / 2.7 - 3.8 cm M-MODE Aortic Root Diameter MM 2.4 cm AV Cusp Separation MM 1.9 cm DOPPLER Mitral E Point Velocity 132.0 cm/s Mitral A Point Velocity 102.0 cm/s Mitral E to A Ratio 1.3 TR Peak Velocity 312.0 cm/s TR Peak Gradient 38.9 mmHg FINDINGS LEFT VENTRICLE Normal left ventricular size. Wall thickness is normal. The left ventricular systolic function is normal with an estimated ejection fraction in the range of 60-65%. RIGHT VENTRICLE Normal right ventricular size and systolic function. LEFT ATRIUM The left atrial size is normal. RIGHT ATRIUM The right atrial size is normal. ATRIAL SEPTUM Normal atrial septal thickness without atrial level shunting by limited color doppler interrogation. AORTA The aortic root and proximal ascending aorta are normal in size on limited imaging. MITRAL VALVE Structurally normal mitral valve. No mitral valve stenosis or regurgitation. AORTIC VALVE Trileaflet aortic valve. No aortic valve stenosis or regurgitation. TRICUSPID VALVE Structurally normal tricuspid valve. No tricuspid valve stenosis or regurgitation. PULMONARY VALVE The pulmonary valve is not well visualized. VESSELS The inferior vena cava is normal in size. PERICARDIUM No pericardial effusion. Darron Zamora MD, FACC (Electronically Signed) Final Date:18 October 2017 18:44
[2017-10-18] MEDS: SODIUM CHLORIDE 0.9% FLUSH 10 ML FLUSH IV FLUSH SCH (21:00)
--- NOTE | 2017-10-18 23:28 | EKG ---
Date Performed: 10/18/2017 Time Performed: 01:14:50 PTAGE: 27 years EKG: Sinus rhythm NORMAL ECG NO PREVIOUS TRACING DOCTOR: Tristin Vargas Interpretating Date/Time 10/18/2017 23:25:42
[2017-10-19] VITALS (20 sets, daily range): BP systolic 156–169; BP diastolic 71–103; PULSE 90–114; RESP 16–23; TEMP 98.9–100.8; O2SAT 96–99
[2017-10-19] MEDS: KETOROLAC TROMETHAMINE 30 MG/ML (IVP) VIAL IV PUSH SCH ×4 (01:56→21:36)
[2017-10-19] MEDS: METOCLOPRAMIDE HCL 10 MG/2 ML VIAL IV PUSH SCH ×3 (01:58→23:41)
[2017-10-19] MEDS: HEPARIN SODIUM - SQ 10,000 UNITS/ML VIAL SQ SCH ×3 (05:28→21:38)
--- NOTE | 2017-10-19 07:07 | HHI.OB ---
Subjective Post Operative Day: 5 Remarks Mrs. Garcia is a 27 yo P1001 who is POD5 from primary CS. Mrs. Garcia was afebrile with HR ~115 and SBP ~150's overnight. Patient reports continued abdominal pain. Patient passing gas normally. Patient also reports some difficulty breathing due to NG tube. Patient does not report lower extremity pain. Patient has not yet been ambulating. Objective Vitals/I&O Vital Signs Date Time Temp Pulse Resp B/P (MAP) Pulse Ox O2 Delivery O2 Flow Rate FiO2 10/19/17 06:00 114 10/19/17 04:00 108 10/19/17 02:00 112 10/19/17 01:51 99.3 114 23 156/82 (106) 96 10/19/17 00:00 113 10/18/17 22:00 112 10/18/17 20:00 111 10/18/17 19:00 99 Room Air 10/18/17 18:00 110 10/18/17 16:00 108 10/18/17 13:51 98.0 106 18 153/93 (113) 98 10/18/17 09:00 16 10/18/17 08:50 107 98 10/18/17 08:45 106 98 10/18/17 08:40 108 97 10/18/17 08:35 107 97 10/18/17 08:30 106 97 10/18/17 08:25 107 97 10/18/17 08:20 106 97 10/18/17 08:15 105 97 10/18/17 08:10 106 97 10/18/17 08:05 105 97 10/18/17 08:00 98.4 16 10/18/17 08:00 106 10/18/17 08:00 107 142/86 (104) 97 10/18/17 07:55 111 98 10/18/17 07:50 107 99 10/18/17 07:45 111 97 10/18/17 07:40 109 97 10/18/17 07:35 111 97 10/18/17 07:29 111 97 10/18/17 07:24 112 97 10/18/17 07:19 113 95 10/18/17 07:14 113 95 10/18/17 07:09 112 95 10/18/17 07:04 114 96 10/18/17 07:00 112 94 10/18/17 07:00 109 152/95 (114) Intake & Output 10/19/17 10/19/17 07:00 19:00 Intake Total 522 ml Output Total 1570 ml Balance -1048 ml Intake IV Total 522 ml Output Urine Total 1550 ml Gastric Drainage Total 20 ml # Sanitary Pads 1 Pads Result Diagram: 10/18/1742910/18/17429 Objective Remarks GENERAL: Well-nourished, well-developed patient. CARDIOVASCULAR: Mild tachycardia; regular rhythm without murmurs RESPIRATORY: CTAB; normal rate ABDOMEN/GI: Abdomen distended. Bowel sounds decreased. Diffuse pain to light palpation. Fundus firm, below umbilicus Skin: Incision dry/intact; it appears to be healing well GENITOURINARY: mild evidence of vaginal bleeding on vaginal pad/towel; seems physiologic EXTREMITIES: No pain to palpation or asymmetry of calves Medications and IVs Current Medications Medications (Trade) Dose Ordered Sig/Bravo Route Start Time Stop Time Status Last Admin (Calcium Gluconate Inj) 1 gm UNSCH PRN IV PUSH 10/13/17 11:00 (NS Flush) 2 ml BID IV FLUSH 10/14/17 21:00 10/18/17 21:00 (NS Flush) 2 ml UNSCH PRN IV FLUSH 10/14/17 18:00 (Mylicon Chew) 80 mg QID PRN PO 10/14/17 18:00 10/16/17 23:52 (Motrin) 600 mg Q6H PRN PO 10/14/17 18:00 10/17/17 06:35 (Percocet 5-325 Mg) 1 tab Q4H PRN PO 10/14/17 18:00 Future Hold 10/16/17 05:59 (Percocet 5-325 Mg) 2 tab Q4H PRN PO 10/14/17 18:00 Future Hold 10/17/17 06:26 (Benadryl 2% Cream) 1 applic TID PRN TOPICAL 10/16/17 16:00 10/16/17 17:27 (Sita-Colace) 2 tab BID PRN PO 10/17/17 01:30 10/17/17 01:16 (Trandate) 200 mg TID PO 10/17/17 18:00 10/18/17 17:48 Lactated Ringer's 1,000 ml @ 50 mls/hr Q20H IV 10/17/17 13:30 10/18/17 19:01 (Toradol Inj) 30 mg Q6H IV PUSH 10/17/17 14:00 10/22/17 13:59 10/19/17 01:56 Magnesium Sulfate 1,000 ml @ 50 mls/hr Q20H IV 10/17/17 16:13 (Heparin Inj) 5,000 units Q8HR SQ 10/18/17 06:00 10/19/17 05:28 (Trandate Inj) 10 mg Q4H PRN IV PUSH 10/18/17 00:15 Acetaminophen 100 ml @ 400 mls/hr Q6H PRN IV 10/18/17 09:00 (Reglan Inj) 10 mg Q8H IV PUSH 10/18/17 09:00 10/19/17 01:58 (fentaNYL INJ) 25 mcg Q2H PRN IV 10/18/17 10:00 (Protonix Inj) 40 mg Q12HR IV PUSH 10/18/17 12:00 10/18/17 21:24 (Ativan Inj) 0.5 mg Q6H PRN IV 10/18/17 13:00 Assessment/Plan Problem List: (1) 39 weeks gestation of ICD Codes: Z3A.39 - 39 weeks gestation of Status: Resolved (2) Hypertension affecting in third trimester ICD Codes: O16.3 - Unspecified maternal hypertension, third trimester Status: Acute (3) delivery, delivered, current hospitalization ICD Codes: O82 - Encounter for delivery without indication Status: Acute (4) Ileus ICD Codes: K56.7 - Ileus, unspecified Status: Acute (5) Anemia ICD Codes: D64.9 - Anemia, unspecified Assessment and Plan 27 yo female s/p C/S, POD 5 Post-op Ileus Impression: KUB and CT 10/18 demonstrative of ileus w/o obstruction. -GI consulted -Continue Reglan 10mg IV q8hrs -NPO -Contue NG with low intermittent wall suction -Continue BID protonix -EGD once Ileus resolved PREE Impression: SBP in 150's overnight. S/P MgSO4 -Continue Labetalol 200mg TID, PRN Labetalol Anemia Impression: Hgb 7.4 10/18; downtrending -Monitor H+H and transfuse as needed care -Continue PRN pain control -Continue to encourage OOB -Pelvic rest x6 weeks -Monitor for vaginal bleeding, post-op Hgb -Continue stool softener -Continue Heparin for DVT PPX Seen and discussed with Dr. Jakob Loja,All Padron MD, R3 Oct 19, 2017 07:07
[2017-10-19] MEDS: MAGNESIUM SULFATE 40 GM PREMIX 1,000 ML IV SCH (08:13)
[2017-10-19] MEDS: PANTOPRAZOLE SODIUM 40 MG VIAL IV PUSH SCH ×2 (08:34→21:36)
[2017-10-19] MEDS: SODIUM CHLORIDE 0.9% FLUSH 10 ML FLUSH IV FLUSH SCH ×2 (08:36→21:00)
[2017-10-19] MEDS: LABETALOL HCL 100 MG TAB PO SCH ×3 (09:00→18:02)
[2017-10-19 10:44] LABS: AUTOMATED NEUTROPHIL # 9.2 TH/MM3 (1.8-7.7); BASOPHIL % 0.3 % (0.0-2.0); EOSINOPHIL # 0.1 TH/MM3 (0-0.4); EOSINOPHIL % 1.2 % (0.0-4.0); LYMPH % 14.1 % (9.0-44.0); LYMPHOCYTE # 1.7 TH/MM3 (1.0-4.8); MEAN CELL VOLUME 87.2 FL (80.0-100.0); MEAN CORPUSCULAR HEMOGLOBIN 29.7 PG (27.0-34.0); MEAN CORPUSCULAR HGB CONC 34.1 % (32.0-36.0); MEAN PLATELET VOLUME 8.3 FL (7.0-11.0); MONO % 7.4 % (0.0-8.0); MONOCYTE # 0.9 TH/MM3 (0-0.9); PLATELET COUNT 316 TH/MM3 (150-450); RED BLOOD COUNT 2.29 MIL/MM3 (4.00-5.30); RED CELL DISTRIBUTION WIDTH 14.1 % (11.6-17.2)
--- NOTE | 2017-10-19 10:47 | HHI.GIFU ---
Subjective Remarks Pt resting in bed. Says her pain is improving, denies n/v. less output NGT. No coffee grounds seen in cannister. + flatus (Rochelle Arteaga) Objective Vitals I&O Vital Signs Date Time Temp Pulse Resp B/P (MAP) Pulse Ox O2 Delivery O2 Flow Rate FiO2 10/19/17 06:00 114 10/19/17 04:00 108 10/19/17 02:00 112 10/19/17 01:51 99.3 114 23 156/82 (106) 96 10/19/17 00:00 113 10/18/17 22:00 112 10/18/17 20:00 111 10/18/17 19:00 99 Room Air 10/18/17 18:00 110 10/18/17 16:00 108 10/18/17 13:51 98.0 106 18 153/93 (113) 98 I/O 10/18/17 10/18/17 10/18/17 10/19/17 10/19/17 10/19/17 07:00 15:00 23:00 07:00 15:00 23:00 Intake Total 1150 ml 422 ml Output Total 1050 ml 1570 ml Balance 100 ml -1148 ml Intake IV Total 1150 ml 422 ml Output Urine Total 950 ml 1550 ml Gastric Drainage Total 100 ml 20 ml # Sanitary Pads 1 Pads Laboratory Laboratory Tests Test 10/19/17 09:53 Date/Time Source Procedure Growth Status 10/18/17 04:55 Blood Peripheral Aerobic Blood Culture Pending Received 10/18/17 04:55 Blood Peripheral Anaerobic Blood Culture Pending Received Imaging Last Impressions Abdomen X-Ray 10/18/17 0800 Signed Impressions: Service Date/Time: Wednesday, October 18, 2017 09:51 - CONCLUSION: 1. Diffuse gaseous distention of bowel similar to October 17 most characteristic of ileus. There is placement of an NG tube which is coiled in the stomach. Edi Pfeiffer MD Lung Scan- Nuclear Medicine 10/18/17 0000 Signed Impressions: Service Date/Time: Wednesday, October 18, 2017 09:56 - CONCLUSION: 1. No evidence for pulmonary embolus. Edi Pfeiffer MD Abdomen/Pelvis CT 10/18/17 0000 Signed Impressions: Service Date/Time: Wednesday, October 18, 2017 09:54 - CONCLUSION: 1. Diffuse ileus. 2. NG in stomach. Booth catheter in bladder. Mild right hydronephrosis probably related to . Air in the endometrial cavity and anterior abdominal wall likely related to recent section. Edi Pfeiffer MD Chest X-Ray 10/17/17 0000 Signed Impressions: Service Date/Time: Tuesday, October 17, 2017 23:14 - CONCLUSION: Right lower lobe infiltrate. Aime Garcia Jr., MD Physical Exam HEENT: PERRL; normocephalic; atraumatic; no jaundice. NGT scant bilious output CHEST: CTA CARDIAC: RRR ABDOMEN: Soft, distended, mild TTP diffusely; no hepatosplenomegaly; BS hypoactive EXTREMITIES: No clubbing, cyanosis, or edema. SKIN: Normal; no rash; no jaundice. GRINDER SET UP OPERATOR CENTERLESS: No focal deficits; alert and oriented times three. (Rochelle Arteaga) Assessment and Plan Plan ASSESSMENT - abd distention, pain, n/v, no BM in 1 week - post op ileus. pt ambulating little if at all. KUB showed ileus. CT 10/18/17 showed diffuse ileus, no obstruction. reglan initiated. denies flatus at this time - anemia - normocytic. could be multifactorial in part d/t dilution, recent c section. NGT output does have coffee ground appearance NGT injury? NGT was to medium suction, will put on LIWS she is on heparin 10/19/17 seems to be improving clinically. still distended but less pain. denies n/v. less NGT output. no coffee grounds seen in output today; poss could have been d/t NGT/suction injury. will try clamping and see how she does. PLAN - ok to transfer to floor from GI standpoint - clamp NGT - trial clears - if pt has increased pain or n/v return NGT to LIWS - encourage movement, ambulation - continue reglan - continue bowel regimen - monitor HH - BID protonix pt seen by myself and Dr Gmable and this note is on his behalf (Rochelle Arteaga) Physician Comments Agree with above assessment and plan. Will follow up with you. (Annette Gamble MD) Rochelle Arteaga Oct 19, 2017 10:47 Annette Gamble MD Oct 19, 2017 13:21
[2017-10-19 10:49] LABS: HEMOGLOBIN 6.8 GM/DL (11.6-15.3)
[2017-10-19 11:09] LABS: BICARBONATE 26.8 MEQ/L (21.0-32.0); CALCIUM 7.4 MG/DL (8.5-10.1); CALCIUM-PROTEIN CORRECTED 8.1 MG/DL (8.5-10.1); CREATININE 0.61 MG/DL (0.50-1.00); MAGNESIUM 2.5 MG/DL (1.5-2.5); TOTAL BILIRUBIN ADULT 0.3 MG/DL (0.2-1.0); TOTAL PROTEIN 5.9 GM/DL (6.4-8.2)
[2017-10-19 11:26] LABS: BANDS 6 % (0-6); LYMPHOCYTES 7 % (9-44); METAMYELOCYTES 3 % (0-1); MYELOCYTES 1 % (0-0); POLYS (SEG NEUTROPHILS) 82 % (16-70)
--- NOTE | 2017-10-19 12:26 | RADRPT ---
EXAM DATE/TIME: 10/19/2017 12:01 [facility] COMPARISON: ABDOMEN KUB ONLY, October 18, 2017, 9:51. INDICATIONS : Abdominal pain, nausea, evaluate ileus MEDICAL HISTORY : ileus SURGICAL HISTORY : section. ENCOUNTER: Subsequent ACUITY: 3 days PAIN SCORE: Non-responsive. LOCATION: Bilateral abdomen FINDINGS: There is an NGT in the stomach. Decreased diffuse small bowel gaseous distention with air again noted in the transverse colon. No gross free air or pneumatosis. Remainder of the exam is unchanged. CONCLUSION: 1. NGT in the stomach. 2. Improving adynamic ileus pattern. Rambo Alvarez MD on October 19, 2017 at 12:23 Board Certified Radiologist. This report was verified electronically.
[2017-10-19] MEDS ORDERED: ACETAMINOPHEN 325 MG TAB PO PRN ×2 (12:30→22:00)
[2017-10-19] MEDS ORDERED: SODIUM CHLOR 0.9% 250 ML INJ 250 ML IV ONE (12:30)
[2017-10-19] MEDS ORDERED: diphenhydrAMINE HCL 25 MG CAP PO PRN (12:30)
[2017-10-19] MEDS: LACTATED RINGER'S 1000 ML INJ 1,000 ML IV SCH (19:33)
[2017-10-19] MEDS ORDERED: LABETALOL HCL 100 MG/20 ML VIAL IV PUSH ONE (19:45)
[2017-10-19] MEDS ORDERED: NIFEdipine 10 MG CAP PO ONE (23:30)
[2017-10-19] MEDS ORDERED: NIFEdipine 60 MG SUSTAINED RELEASE TAB PO SCH (23:30)
[2017-10-20] VITALS: BP 152/99; PULSE 93; RESP 15; TEMP 99.2
[2017-10-20] MEDS: KETOROLAC TROMETHAMINE 30 MG/ML (IVP) VIAL IV PUSH SCH ×4 (02:22→20:00)
[2017-10-20 04:00] VITALS: BP 148/91; PULSE 100; RESP 13; TEMP 99.4
[2017-10-20] MEDS: MAGNESIUM SULFATE 40 GM PREMIX 1,000 ML IV SCH (04:13)
[2017-10-20 06:24] LABS: HEMATOCRIT 28.8 % (35.0-46.0); HEMOGLOBIN 9.9 GM/DL (11.6-15.3); MEAN CELL VOLUME 87.9 FL (80.0-100.0); MEAN CORPUSCULAR HEMOGLOBIN 30.2 PG (27.0-34.0); MEAN CORPUSCULAR HGB CONC 34.4 % (32.0-36.0); MEAN PLATELET VOLUME 8.1 FL (7.0-11.0); PLATELET COUNT 322 TH/MM3 (150-450); RED BLOOD COUNT 3.28 MIL/MM3 (4.00-5.30); RED CELL DISTRIBUTION WIDTH 13.5 % (11.6-17.2); WHITE BLOOD COUNT 14.7 TH/MM3 (4.0-11.0)
[2017-10-20] MEDS: HEPARIN SODIUM - SQ 10,000 UNITS/ML VIAL SQ SCH (06:24)
[2017-10-20 08:00] VITALS: BP 143/83; PULSE 82; RESP 16; TEMP 99.8; O2SAT 98
[2017-10-20] MEDS ORDERED: NIFEdipine 30 MG SUSTAINED RELEASE TAB PO ONE (08:45)
[2017-10-20] MEDS: SODIUM CHLORIDE 0.9% FLUSH 10 ML FLUSH IV FLUSH SCH ×2 (09:00→21:00)
[2017-10-20] MEDS: METOCLOPRAMIDE HCL 10 MG/2 ML VIAL IV PUSH SCH ×2 (09:00→17:00)
--- NOTE | 2017-10-20 09:22 | HHI.GIFU ---
Subjective Remarks Sitting up in a chair holding her baby Denies any acute abdominal pain except for some mild soreness NG tube intact but patient is tolerating clear liquids without nausea and vomiting Mild fever noted over the past 24 hours 99 4-100.8 (Jacquelin Zelaya) Objective Vitals I&O Vital Signs Date Time Temp Pulse Resp B/P (MAP) Pulse Ox O2 Delivery O2 Flow Rate FiO2 10/20/17 04:00 99.4 100 13 148/91 (110) 10/20/17 00:00 99.2 93 15 152/99 (116) 10/19/17 21:08 100.8 98 16 165/102 10/19/17 20:25 100.8 97 18 163/103 10/19/17 20:19 100.4 98 18 166/98 10/19/17 20:13 100.3 101 16 161/101 10/19/17 20:03 100.6 98 16 167/98 10/19/17 20:00 100.6 98 16 167/98 10/19/17 19:34 99.4 100 16 169/98 (121) 10/19/17 18:55 90 16 161/89 10/19/17 18:28 98.9 10/19/17 18:00 100.2 101 18 167/100 (122) 10/19/17 17:40 99.1 90 16 158/71 99 10/19/17 14:18 14 10/19/17 14:00 90 10/19/17 12:00 111 10/19/17 10:00 105 I/O 10/19/17 10/19/17 10/19/17 10/20/17 10/20/17 10/20/17 07:00 15:00 23:00 07:00 15:00 23:00 Intake Total 422 ml 800 ml Output Total 1570 ml 550 ml 900 ml Balance -1148 ml 250 ml -900 ml Intake IV Total 422 ml Packed Cells 800 ml Output Urine Total 1550 ml 550 ml 900 ml Gastric Drainage Total 20 ml # Bowel Movements 4 # Sanitary Pads 1 Pads Laboratory Laboratory Tests Test 10/19/17 09:53 10/20/17 06:00 White Blood Count 12.0 14.7 Red Blood Count 2.29 3.28 Hemoglobin 6.8 9.9 Hematocrit 20.0 28.8 Mean Corpuscular Volume 87.2 87.9 Mean Corpuscular Hemoglobin 29.7 30.2 Mean Corpuscular Hemoglobin Concent 34.1 34.4 Red Cell Distribution Width 14.1 13.5 Platelet Count 316 322 Mean Platelet Volume 8.3 8.1 Neutrophils (%) (Auto) 77.0 Lymphocytes (%) (Auto) 14.1 Monocytes (%) (Auto) 7.4 Eosinophils (%) (Auto) 1.2 Basophils (%) (Auto) 0.3 Neutrophils # (Auto) 9.2 Lymphocytes # (Auto) 1.7 Monocytes # (Auto) 0.9 Eosinophils # (Auto) 0.1 Basophils # (Auto) 0.0 CBC Comment AUTO DIFF Differential Total Cells Counted 100 Neutrophils % (Manual) 82 Band Neutrophils % 6 Lymphocytes % 7 Eosinophils % 1 Neutrophils # (Manual) 11.0 Metamyelocytes 3 Myelocytes 1 Differential Comment FINAL DIFF MANUAL Platelet Estimate NORMAL Platelet Morphology Comment NORMAL Blood Urea Nitrogen 9 Creatinine 0.61 Random Glucose 75 Total Protein 5.9 Albumin 2.0 Calcium Level 7.4 Magnesium Level 2.5 Alkaline Phosphatase 71 Aspartate Amino Transf (AST/SGOT) 15 Alanine Aminotransferase (ALT/SGPT) 10 Total Bilirubin 0.3 Sodium Level 141 Potassium Level 3.9 Chloride Level 103 Carbon Dioxide Level 26.8 Anion Gap 11 Estimat Glomerular Filtration Rate 140 Protein Corrected Calcium 8.1 Date/Time Source Procedure Growth Status 10/18/17 04:55 Blood Peripheral Aerobic Blood Culture - Preliminary NO GROWTH IN 1 DAY Resulted 10/18/17 04:55 Blood Peripheral Anaerobic Blood Culture - Preliminary NO GROWTH IN 1 DAY Resulted Imaging Last Impressions Abdomen X-Ray 10/19/17 0000 Signed Impressions: Service Date/Time: October 12:01 - CONCLUSION: 1. NGT in the stomach. 2. Improving adynamic ileus pattern. Rmabo Alvarez MD Lung Scan- Nuclear Medicine 10/18/17 0000 Signed Impressions: Service Date/Time: Wednesday, October 18, 2017 09:56 - CONCLUSION: 1. No evidence for pulmonary embolus. Edi Pfeiffer MD Abdomen/Pelvis CT 10/18/17 0000 Signed Impressions: Service Date/Time: Wednesday, October 18, 2017 09:54 - CONCLUSION: 1. Diffuse ileus. 2. NG in stomach. Booth catheter in bladder. Mild right hydronephrosis probably related to . Air in the endometrial cavity and anterior abdominal wall likely related to recent section. Edi Pfeiffer MD Chest X-Ray 10/17/17 0000 Signed Impressions: Service Date/Time: Tuesday, October 17, 2017 23:14 - CONCLUSION: Right lower lobe infiltrate. Aime Garcia Jr., MD Physical Exam HEENT: normocephalic; atraumatic; no jaundice. NGT clamped CHEST: CTA CARDIAC: RRR ABDOMEN: taut, Soft, distended, minimal TTP diffusely; no hepatosplenomegaly; BS soft EXTREMITIES: No clubbing, cyanosis, or edema. SKIN: Normal; no rash; no jaundice. SPECIAL AGENT IN CHARGE: No focal deficits; alert and oriented times three. (Jacquelin Zelaya) Assessment and Plan Plan ASSESSMENT - abd distention, pain, n/v, no BM in 1 week - post op ileus. pt ambulating little if at all. KUB showed ileus. CT 10/18/17 showed diffuse ileus, no obstruction. reglan initiated. denies flatus at this time - anemia - normocytic. could be multifactorial in part d/t dilution, recent c section. NGT output does have coffee ground appearance NGT injury? NGT was to medium suction, will put on LIWS she is on heparin 10/19/17 seems to be improving clinically. still distended but less pain. denies n/v. less NGT output. no coffee grounds seen in output today; poss could have been d/t NGT/suction injury. will try clamping and see how she does. 10/20/17 clinically improving along with ileus resolving per abdominal ultrasound on 10/19/17. NG tube removed today patient is tolerating clear liquids without nausea or vomiting. Patient has been having several loose stools with no obvious blood noted according to nurse and patient. We'll continue with clear liquids most of the day and if patient tolerates may consider transitioning to full liquids this p.m. Hemoglobin 9.9 elevated from 6.8 received 1 unit transfusion, one other unit is pending if needed PLAN - ok to transfer to floor from GI standpoint - NGT discontinued - clears breakfast and lunch if tolerating may go to full liquids this p.m. for dinner - if pt has increased pain or n/v return NGT to LIWS - encourage movement, ambulation - continue reglan - continue bowel regimen - monitor HH - BID protonix pt seen by myself and Dr Gamble and this note is on his behalf (Jacquelin Zelaya) Physician Comments Agree with above assessment and plan. Advance diet as tolerated and if still asymptomatic to DC home. (Annette Gamble MD) Jacquelin Zelaya Oct 20, 2017 09:22 Annette Gamble MD Oct 20, 2017 11:14
[2017-10-20] MEDS: PANTOPRAZOLE SODIUM 40 MG VIAL IV PUSH SCH (09:36)
--- NOTE | 2017-10-20 11:05 | RADRPT ---
EXAM DATE/TIME: 10/20/2017 10:38 [facility] COMPARISON: No previous studies available for comparison. INDICATIONS : Fever. MEDICAL HISTORY : None. SURGICAL HISTORY : section. ENCOUNTER: Subsequent ACUITY: 3 days PAIN SCORE: 0/10 LOCATION: Bilateral chest FINDINGS: PA and lateral views of the chest demonstrate the lungs to be symmetrically aerated without evidence of mass, infiltrate or effusion. The cardiomediastinal contours are unremarkable. Osseous structure s are intact. CONCLUSION: 1. No acute cardiopulmonary disease. Rambo Alvarez MD on October 20, 2017 at 11:03 Board Certified Radiologist. This report was verified electronically.
--- NOTE | 2017-10-20 11:08 | HHI.OB ---
Subjective Post Operative Day: 6 Remarks Postoperative day number 6. AFVSS overnight. Pain well-controlled. Incision not draining. Decreased lochia. Denies dysuria. No breast tenderness. She is feeding the baby via bottle. Appetite good. She is drinking clears and tolerating it well. No nausea or vomiting. + flatus. Has had bowel movements, had some diarrhea this morning. Ambulating well, is walking the halls.. Denies calf pain, shortness of breath, or cough. Otherwise, she is doing well this morning and has no other complaints. Objective Vitals/I&O Vital Signs Date Time Temp Pulse Resp B/P (MAP) Pulse Ox O2 Delivery O2 Flow Rate FiO2 10/20/17 04:00 99.4 100 13 148/91 (110) 10/20/17 00:00 99.2 93 15 152/99 (116) 10/19/17 21:08 100.8 98 16 165/102 10/19/17 20:25 100.8 97 18 163/103 10/19/17 20:19 100.4 98 18 166/98 10/19/17 20:13 100.3 101 16 161/101 10/19/17 20:03 100.6 98 16 167/98 10/19/17 20:00 100.6 98 16 167/98 10/19/17 19:34 99.4 100 16 169/98 (121) 10/19/17 18:55 90 16 161/89 10/19/17 18:28 98.9 10/19/17 18:00 100.2 101 18 167/100 (122) 10/19/17 17:40 99.1 90 16 158/71 99 10/19/17 14:18 14 10/19/17 14:00 90 10/19/17 12:00 111 Intake & Output 10/20/17 10/20/17 06:59 18:59 Intake Total 800 ml Output Total 900 ml Balance -100 ml Packed Cells 800 ml Output Urine Total 900 ml # Bowel Movements 4 Result Diagram: 10/20/17 0600 10/19/17 0953 Objective Remarks GENERAL: Well-nourished, well-developed patient. CARDIOVASCULAR: Mild tachycardia; regular rhythm without murmurs RESPIRATORY: CTAB; normal rate ABDOMEN/GI: Abdomen nondistended. Bowel sounds are normoactive, nontender. Fundus firm, below umbilicus Skin: Incision dry/intact; it appears to be healing well GENITOURINARY: mild evidence of vaginal bleeding on vaginal pad/towel EXTREMITIES: No pain to palpation or asymmetry of calves Medications and IVs Current Medications Medications (Trade) Dose Ordered Sig/Bravo Route Start Time Stop Time Status Last Admin (Calcium Gluconate Inj) 1 gm UNSCH PRN IV PUSH 10/13/17 11:00 (NS Flush) 2 ml BID IV FLUSH 10/14/17 21:00 10/19/17 08:36 (NS Flush) 2 ml UNSCH PRN IV FLUSH 10/14/17 18:00 (Mylicon Chew) 80 mg QID PRN PO 10/14/17 18:00 10/16/17 23:52 (Motrin) 600 mg Q6H PRN PO 10/14/17 18:00 10/17/17 06:35 (Percocet 5-325 Mg) 1 tab Q4H PRN PO 10/14/17 18:00 Future Hold 10/16/17 05:59 (Percocet 5-325 Mg) 2 tab Q4H PRN PO 10/14/17 18:00 Future Hold 10/17/17 06:26 (Benadryl 2% Cream) 1 applic TID PRN TOPICAL 10/16/17 16:00 10/16/17 17:27 (Sita-Colace) 2 tab BID PRN PO 10/17/17 01:30 10/17/17 01:16 (Toradol Inj) 30 mg Q6H IV PUSH 10/17/17 14:00 10/22/17 13:59 10/20/17 09:36 Magnesium Sulfate 1,000 ml @ 50 mls/hr Q20H IV 10/17/17 16:13 (Heparin Inj) 5,000 units Q8HR SQ 10/18/17 06:00 10/20/17 06:24 (Trandate Inj) 10 mg Q4H PRN IV PUSH 10/18/17 00:15 10/19/17 21:36 Acetaminophen 100 ml @ 400 mls/hr Q6H PRN IV 10/18/17 09:00 (Reglan Inj) 10 mg Q8H IV PUSH 10/18/17 09:00 10/19/17 08:35 (fentaNYL INJ) 25 mcg Q2H PRN IV 10/18/17 10:00 (Protonix Inj) 40 mg Q12HR IV PUSH 10/18/17 12:00 10/20/17 09:36 (Ativan Inj) 0.5 mg Q6H PRN IV 10/18/17 13:00 (Tylenol) 650 mg Q4H PRN PO 10/19/17 12:30 (Benadryl) 25 mg Q4H PRN PO 10/19/17 12:30 10/19/17 19:24 (Tylenol) 650 mg Q4H PRN PO 10/19/17 22:00 10/19/17 22:22 (Procardia Xl) 90 mg DAILY PO 10/20/17 20:00 Assessment/Plan Problem List: (1) 39 weeks gestation of ICD Codes: Z3A.39 - 39 weeks gestation of Status: Resolved (2) Hypertension affecting in third trimester ICD Codes: O16.3 - Unspecified maternal hypertension, third trimester Status: Acute (3) delivery, delivered, current hospitalization ICD Codes: O82 - Encounter for delivery without indication Status: Acute (4) Ileus ICD Codes: K56.7 - Ileus, unspecified Status: Acute (5) Anemia ICD Codes: D64.9 - Anemia, unspecified Assessment and Plan 27 yo female s/p C/S, POD 6 Post-op Ileus- has now resolved Impression: KUB and CT 10/18 demonstrative of ileus w/o obstruction. -GI consulted -Continue Reglan 10mg IV q8hrs, holding now due to diarrhea -Clears for breakfast and lunch, if tolerates can advance to fulls for dinner -D/C NGT -Continue BID protonix -EGD once Ileus resolved PREE Impression: BP 150's-160s/100s overnight. S/P MgSO4 -Will increase Procardia to 90mq qD today Anemia Impression: Hgb is 9.9 s/p 2 units of pRBCs -Will repeat H&H this afternoon care -Continue PRN pain control -Continue to encourage OOB -Continue Heparin for DVT PPX Seen and discussed with Cathy Sellers MD R1 Oct 20, 2017 11:08
[2017-10-20 12:30] LABS: HEMATOCRIT 31.8 % (35.0-46.0); HEMOGLOBIN 10.9 GM/DL (11.6-15.3)
[2017-10-20 13:57] VITALS: BP 139/81; PULSE 99; RESP 18; TEMP 98.6
[2017-10-20 14:37] LABS: BILIRUBIN, URINE NEG (NEG); BLOOD, URINE TRACE (NEG); GLUCOSE,URINE NEG (NEG); KETONE, URINE TRACE mg/dL (NEG); MUCUS URINE FEW /lpf (OCC); NITRITE,URINE NEG (NEG); URINE COLOR LIGHT-YELLOW (YELLW/STRAW); URINE LEUKOCYTE ESTERASE NEG (NEG)
[2017-10-20] MEDS: IBUPROFEN 600 MG TAB PO PRN (17:45)
[2017-10-20] MEDS: NIFEdipine 90 MG SUSTAINED RELEASE TAB PO SCH (21:15)
[2017-10-20] MEDS: oxyCODONE/ACETAMINOPHEN 5 MG/325 MG TAB PO PRN ×2 (22:01)
[2017-10-21 07:24] VITALS: BP 131/68; PULSE 123; RESP 18; TEMP 99.7
--- NOTE | 2017-10-21 08:11 | HHI.OB ---
Subjective Post Operative Day: 7 Remarks Afebrile, vital signs stable S/P postop ileus Patient is feeling good no complaints of problems at this time does have some surgical pain related to her incision but the incision looks good, she is tolerating solid food, having normal bowel movements, and ambulating well. Patient feels like she is ready to go home after a week in the hospital, her baby is already been discharged and taken home by her family Objective Vitals/I&O Vital Signs Date Time Temp Pulse Resp B/P (MAP) Pulse Ox O2 Delivery O2 Flow Rate FiO2 10/21/17 07:24 99.7 123 18 131/68 (89) 10/20/17 21:15 18 10/20/17 21:15 18 10/20/17 13:57 98.6 99 18 139/81 (100) Result Diagram: 10/20/17 1216 10/19/17 0953 Objective Remarks GENERAL: Well-nourished, well-developed patient. CARDIOVASCULAR: Mild tachycardia; regular rhythm without murmurs RESPIRATORY: CTAB; normal rate ABDOMEN/GI: Abdomen 2+distended. Bowel sounds are normoactive, nontender. Fundus firm, below umbilicus Skin: Incision dry/intact; it appears to be healing well GENITOURINARY: mild evidence of vaginal bleeding on vaginal pad/towel EXTREMITIES: No pain to palpation or asymmetry of calves Medications and IVs Current Medications Medications (Trade) Dose Ordered Sig/Bravo Route Start Time Stop Time Status Last Admin (Mylicon Chew) 80 mg QID PRN PO 10/14/17 18:00 10/16/17 23:52 (Motrin) 600 mg Q6H PRN PO 10/14/17 18:00 10/20/17 17:45 (Percocet 5-325 Mg) 1 tab Q4H PRN PO 10/14/17 18:00 Future Hold 10/16/17 05:59 (Percocet 5-325 Mg) 2 tab Q4H PRN PO 10/14/17 18:00 Future Hold 10/17/17 06:26 (Benadryl 2% Cream) 1 applic TID PRN TOPICAL 10/16/17 16:00 10/16/17 17:27 (Sita-Colace) 2 tab BID PRN PO 10/17/17 01:30 10/17/17 01:16 (Tylenol) 650 mg Q4H PRN PO 10/19/17 12:30 (Benadryl) 25 mg Q4H PRN PO 10/19/17 12:30 10/19/17 19:24 (Tylenol) 650 mg Q4H PRN PO 10/19/17 22:00 10/19/17 22:22 (Procardia Xl) 90 mg DAILY PO 10/20/17 20:00 10/20/17 21:15 (Protonix) 40 mg DAILY PO 10/21/17 09:00 Assessment/Plan Problem List: (1) 39 weeks gestation of ICD Codes: Z3A.39 - 39 weeks gestation of Status: Resolved (2) Hypertension affecting in third trimester ICD Codes: O16.3 - Unspecified maternal hypertension, third trimester Status: Acute (3) delivery, delivered, current hospitalization ICD Codes: O82 - Encounter for delivery without indication Status: Acute (4) Ileus ICD Codes: K56.7 - Ileus, unspecified Status: Acute (5) Anemia ICD Codes: D64.9 - Anemia, unspecified Qualifiers: Qualified Codes: D64.9 - Anemia, unspecified Assessment and Plan 27 yo female s/p C/S, POD 7 Post-op Ileus- has now resolved Impression: Postoperative ileus now resolved. -GI consulted -Continue BID protonix PREE Impression: BP 120-130/70-80s -Will continue Procardia XL 90mg Anemia Impression: Hgb is 9.9 s/p 2 units of pRBCs care -Continue PRN pain control -Continue to encourage OOB Pt ready for discharge home on ProcardiaXL 90 mg ., protonix 40 mg q d , PNV and Fe she is to F/U with Shauna Casillas in 1-2 wks Fredy Robert II, MD Oct 21, 2017 08:11
[2017-10-21] MEDS ORDERED: IBUP-232 PO (08:19)
[2017-10-21] MEDS ORDERED: OXYC1TAB63 PO (08:19)
[2017-10-21] MEDS ORDERED: PANT40TA3 PO (08:19)
[2017-10-21] MEDS ORDERED: NIFE90TA2 PO (08:19)
[2017-10-21] MEDS ORDERED: SE-NCHW CHEW (08:19)
[2017-10-21] MEDS: NIFEdipine 90 MG SUSTAINED RELEASE TAB PO SCH (08:27)
[2017-10-21] MEDS ORDERED: PANTOPRAZOLE SOD 40 MG DELAYED RELEASE TAB PO SCH (09:00)
[2017-10-21] MEDS ORDERED: NIFEdipine 90 MG SUSTAINED RELEASE TAB PO SCH (09:00)
--- NOTE | 2017-10-21 10:16 | HHI.GIFU ---
Subjective Remarks She sitting up in bed Smiling excited to go home has been discharged today Denies any acute abdominal pain nausea or vomiting Temp 99.7 BMs times 4 09/22/17 (Jacquelin Zelaya) Objective Vitals I&O Vital Signs Date Time Temp Pulse Resp B/P (MAP) Pulse Ox O2 Delivery O2 Flow Rate FiO2 10/21/17 07:24 99.7 123 18 131/68 (89) 10/20/17 21:15 18 10/20/17 21:15 18 10/20/17 13:57 98.6 99 18 139/81 (100) I/O 10/20/17 10/20/17 10/20/17 10/21/17 10/21/17 10/21/17 07:00 15:00 23:00 07:00 15:00 23:00 Output Total 900 ml Balance -900 ml Output Urine Total 900 ml # Bowel Movements 4 Laboratory Laboratory Tests Test 10/20/17 12:16 10/20/17 13:00 Hemoglobin 10.9 Hematocrit 31.8 Urine Color LIGHT-YELLOW Urine Turbidity CLEAR Urine pH 7.0 Urine Specific [place] 1.011 Urine Protein TRACE Urine Glucose (UA) NEG Urine Ketones TRACE Urine Occult Blood TRACE Urine Nitrite NEG Urine Bilirubin NEG Urine Urobilinogen LESS THAN 2.0 Urine Leukocyte Esterase NEG Urine RBC 2 Urine WBC 1 Urine Granular Casts 3 Urine Mucus FEW Microscopic Urinalysis Comment CULT NOT INDICATED Date/Time Source Procedure Growth Status 10/18/17 04:55 Blood Peripheral Aerobic Blood Culture - Preliminary NO GROWTH IN 2 DAYS Resulted 10/18/17 04:55 Blood Peripheral Anaerobic Blood Culture - Preliminary NO GROWTH IN 2 DAYS Resulted Imaging Last Impressions Chest X-Ray 10/20/17 0000 Signed Impressions: Service Date/Time: Friday, October 20, 2017 10:38 - CONCLUSION: 1. No acute cardiopulmonary disease. Rambo Alvarez MD Abdomen X-Ray 10/19/17 0000 Signed Impressions: Service Date/Time: October 12:01 - CONCLUSION: 1. NGT in the stomach. 2. Improving adynamic ileus pattern. Rambo Alvarez MD Lung Scan- Nuclear Medicine 10/18/17 0000 Signed Impressions: Service Date/Time: Wednesday, October 18, 2017 09:56 - CONCLUSION: 1. No evidence for pulmonary embolus. Edi Pfeiffer MD Abdomen/Pelvis CT 10/18/17 0000 Signed Impressions: Service Date/Time: Wednesday, October 18, 2017 09:54 - CONCLUSION: 1. Diffuse ileus. 2. NG in stomach. Booth catheter in bladder. Mild right hydronephrosis probably related to . Air in the endometrial cavity and anterior abdominal wall likely related to recent section. Edi Pfeiffer MD Physical Exam HEENT: normocephalic; atraumatic; no jaundice. CHEST: CTA CARDIAC: RRR ABDOMEN: taut, Soft, no acute GI distention; no hepatosplenomegaly; BS active EXTREMITIES: No clubbing, cyanosis, or edema. SKIN: Normal; no rash; no jaundice. MUD MIXER: No focal deficits; alert and oriented times three. (Jacquelin Zelaya) Assessment and Plan Plan ASSESSMENT - abd distention, pain, n/v, no BM in 1 week - post op ileus. pt ambulating little if at all. KUB showed ileus. CT 10/18/17 showed diffuse ileus, no obstruction. reglan initiated. denies flatus at this time - anemia - normocytic. could be multifactorial in part d/t dilution, recent c section. NGT output does have coffee ground appearance NGT injury? NGT was to medium suction, will put on LIWS she is on heparin 10/19/17 seems to be improving clinically. still distended but less pain. denies n/v. less NGT output. no coffee grounds seen in output today; poss could have been d/t NGT/suction injury. will try clamping and see how she does. 10/20/17 clinically improving along with ileus resolving per abdominal ultrasound on 10/19/17. NG tube removed today patient is tolerating clear liquids without nausea or vomiting. Patient has been having several loose stools with no obvious blood noted according to nurse and patient. We'll continue with clear liquids most of the day and if patient tolerates may consider transitioning to full liquids this p.m. Hemoglobin 9.9 elevated from 6.8 received 1 unit transfusion, one other unit is pending if needed PLAN - Diet as tolerated no nausea vomiting, - Monitor any constipation especially over the next few weeks - ambulation without any difficulty - Patient plan for DC today, to follow-up with GI if any recurring symptoms pt seen by myself and Dr Gamble and this note is on his behalf (Jacquelin Zelaya) Physician Comments Agree with above, fu as outpatient as needed. (Annette Gamble MD) Jacquelin Zelaya Oct 21, 2017 10:16 Annette Gamble MD Oct 21, 2017 22:35
== END 2017-10-21 09:37 | disposition home or self-care (01) | DRG 765 ==
LOC: HOBED 19:51 → H2EB 22:44 → H2EA 10-14 16:23 → H1EA 10-15 17:06 → H2EA 10-17 15:16 → H2EB 10-18 00:17 → N03A 10-18 14:10 → H2EA 10-19 17:45
PROVIDERS: ADMIT Obstetrics & Gynecology; ATTEND Obstetrics & Gynecology
PROC: 0T9B70Z Drainage of Bladder with Drainage Device, Via Natural or Artificial Opening (ICD-10-PCS; 2017-10-12)
PROC: 3E0P7VZ Introduction of Hormone into Female Reproductive, Via Natural or Artificial Opening (ICD-10-PCS; 2017-10-13)
PROC: 00HU33Z Insertion of Infusion Device into Spinal Canal, Percutaneous Approach (ICD-10-PCS; 2017-10-13)
PROC: 3E0R3BZ Introduction of Anesthetic Agent into Spinal Canal, Percutaneous Approach (ICD-10-PCS; 2017-10-13)
PROC: 10D00Z1 Extraction of Products of Conception, Low, Open Approach (ICD-10-PCS; principal; 2017-10-14)
PROC: 10907ZC Drainage of Amniotic Fluid, Therapeutic from Products of Conception, Via Natural or Artificial Opening (ICD-10-PCS; 2017-10-14)
PROC: 0D9670Z Drainage of Stomach with Drainage Device, Via Natural or Artificial Opening (ICD-10-PCS; 2017-10-17)
PROC: 30233N1 Transfusion of Nonautologous Red Blood Cells into Peripheral Vein, Percutaneous Approach (ICD-10-PCS; 2017-10-19)
DX: O16.9 Unspecified maternal hypertension, unspecified trimester (principal); K56.7 Ileus, unspecified; O99.63 Diseases of the digestive system complicating the puerperium; O61.9 Failed induction of labor, unspecified; Z37.0 Single live birth; Z3A.39 39 weeks gestation of pregnancy; O62.2 Other uterine inertia; O99.02 Anemia complicating childbirth
CPT/HCPCS: 36430; 71045; 71046; 74018; 74176; 78582; 80053; 80074; 80307; 81001; 83735; 83880; 84112; 84550; 85007; 85014; 85018; 85027; 85610; 85730; 86850; 86900; 86901; 86920; 87040; 88307; 90715; 93005; 93306; 94150; 99285; A9540; A9567; C1765; C9113; G0481; J0131; J0360; J0690; J1100; J1644; J1885; J2060; J2274; J2370; J2405; J2590; J2765; J3010; J3475; J3480; J7120; P9016